=== PATIENT | female | born 1960 | race Caucasian/White ===

== ENCOUNTER 2019-10-03 13:48 | Emergency (ER) | payer OTHER, SELFPAY ==
[2019-10-03 13:49] VITALS: BP 152/81; PULSE 71; RESP 16; TEMP 36.2; O2SAT 97; BMI 31.7
--- NOTE | 2019-10-03 13:50 | ED.RN ---
PT NOW REPORTS CHEST PAIN, RESPIRATORY AWARE.
[2019-10-03 14:09] VITALS: BP 142/72; PULSE 68; RESP 16; O2SAT 98
--- NOTE | 2019-10-03 14:32 | EKG12_ITS ---
Test Reason : CP Blood Pressure : / mmHG Vent. Rate : 067 BPM Atrial Rate : 067 BPM P-R Int : 124 ms QRS Dur : 080 ms QT Int : 416 ms P-R-T Axes : 012 058 046 degrees QTc Int : 439 ms Normal sinus rhythm Normal ECG Confirmed by JOSR LUDWIG, UMA ([id number]), marketing editor STEPHANIE FOX ([id number]) on 10/07/2019 9:47:13 AM Referred By: Confirmed By:KATHRYN OVALLES MD
--- NOTE | 2019-10-03 14:32 | RAD_ITS ---
STUDY: X-RAY CHEST REASON FOR EXAM: Female, 59 years old. CHEST PAIN AND SHORTNESS OF BREATH TECHNIQUE: PA and lateral views of the chest. COMPARISON: None. FINDINGS: EKG electrodes are seen. Scattered calcified granulomas. There is no demonstrated pleural abnormality. Normal size heart. Calcified bilateral hilar lymph nodes. Normal visualized pulmonary arteries. Normal visualized aortic arch and descending thoracic aorta. There are mild degenerative changes of the visualized thoracic spine. Prior fusion in the lower cervical spine. There is no demonstrated abnormality of the visualized soft tissue structures of the upper abdomen. RAD/Chest PA and Lateral IMPRESSION: No acute abnormality is seen. Electronically Signed: Casimiro Ellington, at 15:05 EST , Service support ,
--- NOTE | 2019-10-03 14:33 | ED.DCSUM_ITS ---
History of Present Illness Chief Complaint: Chest Pain Informant: Patient Onset: Yesterday Activity at onset: Unknown Timing: Continuous Quality: Aching Location: Left Chest Current Severity: Moderate Maximum Severity: Moderate Worsened By: Movement of Arm, Movement of Torso, Breathing Relieved By: Rest, Remaining Still Associated Symptoms: Nausea, Dyspnea. Negative for: Vomiting, Diaphoresis, Cough, Fever, Lightheadedness, Palpitations Narrative: Spontaneous onset of chest discomfort in her left chest with radiation into the left shoulder area but not down her arm, it is pleuritic, she has no known history of heart or lung disease but states it is worse when she takes a deep breath and she has been feeling short of breath here and they are mostly yesterday. When we discussed her dyspnea more, she thinks it is because it hurts to breathe. She has had no wheezing that she knows of. No palpitations or lightheadedness. No recent leg pain or swelling, long travel, hospitalization, or surgery. No history of DVT or PE. 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 She had no acute injury or onset of symptoms then. - Past Medical History (1) Depression Status: Chronic (2) Hypothyroid Status: Chronic Past Medical History - Allergies and Home Meds Allergies/Adverse Reactions: Allergies No Known Allergies Allergy (Verified 10/03/19 13:49) Primary Care Physician: [facility],Out of [NON-STAFF] - Lives: Spouse/ Significant Other Smoking Status: Current every day smoker - Currently vaping, denies using THC products. States she is trying to quit. Drugs: None Review of Systems General: Denies: Chills, Fever, Sweats Eyes: Denies: Visual changes - bilaterally, Diplopia ENT: Denies: Bilateral ear pain, Rhinorrhea, Sore throat Cardiovascular: Reports: Chest pain. Denies: Palpitations, Heart racing Respiratory: Reports: Dyspnea. Denies: Cough, Dyspnea on exertion Gastrointestinal: Denies: Abdominal pain, Nausea, Vomiting, Diarrhea, Melena, Hematochezia Genitourinary: Denies: Dysuria, Hematuria, Frequency Musculoskeletal: Reports: Extremity Pain - left shoulder. Denies: Back pain, Swelling Skin: Denies: Rash, Wounds Neurological: Denies: Headache, Weakness, Numbness Physical Exam Vital Signs/Narrative: Vital Signs Temp Pulse Resp BP Pulse Ox 10/03/19 14:09 68 16 142/72 H 98 10/03/19 13:49 97.2 F L 71 16 152/81 H 97 Inital Vital Signs reviewed: Yes General: Well nourished, Well developed, No Acute Distress Head: Normocephalic, Atraumatic Eyes: Perrl, EOMI ENT: Moist mucous membranes, No rhinorrhea Neck: Supple, Nontender Cardiovascular: Regular rate, Regular rhythm, No murmurs Respiratory: No distress, CTA bilaterally, Chest tenderness - left mid-ant chest, reproducting pt's sx. no crepitance, no sign of trauma. Abdomen: Soft, Nontender, Nondistended, Normal bowel sounds Back: Nontender, Normal Inspection Extremities: No edema, Tenderness - mild subclavicular right shoulder; no ACJ tend, subacromial tend Skin: Normal color, No rash Neurological: Alert, Oriented x3, Cranial nerves II-XII grossly intact, Normal Strength, Normal Sensation, Normal Gait Psychological: Normal affect, Normal Mood Diagnostic/Tx/Re-eval Impressions Chest X-Ray 10/03/19 14:32 IMPRESSION: No acute abnormality is seen. Electronically Signed: Casimiro Chandana, at 15:05 EST , Service support , 10/03/19 14:32 Chest PA and Lateral [RAD] Stat Laboratory Results 10/03/19 10/03/19 10/03/19 14:00 14:00 14:00 WBC 8.6 RBC 4.99 Hgb 14.0 Hct 43.0 MCV 86.2 MCH 28.1 MCHC 32.6 RDW Std Deviation 41.4 RDW Coeff of Ela 13.3 Plt Count 303 MPV 8.9 Immature Gran % (Auto) 0.200 Neut % (Auto) 64.4 Lymph % (Auto) 26.0 [place] % (Auto) 5.8 Eos % (Auto) 1.7 Baso % (Auto) 1.9 H Absolute Neuts (auto) 5.5 Absolute Lymphs (auto) 2.23 Nucleated RBC % 0 D-Dimer Quant (PE/DVT) 0.54 H* Sodium 140 Potassium 4.0 Chloride 104 Carbon Dioxide 31.0 Anion Gap 5 BUN 11 Creatinine 0.95 Estim Creat Clear Calc 53.70 Est GFR (MDRD) Af Amer 77 Est GFR (MDRD) Non-Af 63 BUN/Creatinine Ratio 11.5 Glucose 87 Calcium 9.2 Troponin I < 0.015 - Rhythm Strip Rhythm Strip: Sinus Rhythm Rate: 85 Ectopy: None - EKG Initial EKG Interpretation: Sinus Rhythm, No Acute Injury Pattern - normal EKG. no [id number]. - Medical Decision Making Patient is a little better after Toradol but still has pleuritic discomfort. Her work-up is normal/negative with the exception of a slightly elevated d- dimer. However, when correcting for age, it is well within normal limits. She is reassured, likely muscular strain, given instructions for supportive care and follow-up as needed and reasons to return. She is comfortable with that plan and does not require prescription analgesics. ED Disposition - Plan for ED Patient: Disposition: Home or Assisted Living Diagnosis: Muscle strain of anterior chest wall Instructions: Chest Wall Strain Referrals: [facility],Out of [NON-STAFF] - 10-14 Days if not better
[2019-10-03 14:38] LABS: Absolute Lymphocyte Count 2.23 X10^3/uL (0.83-4.51); Absolute Neutrophil Count 5.5 X10^3/uL (2.0-7.7); Basophil# 0.16 X10^3/uL; Basophil% 1.9 % (0-1); Eosinophil# 0.15 X10^3/uL; Eosinophils% 1.7 % (0-5); Lymphocyte # 2.23 X10^3/ul (4.0); Mean Corp Hgb Conc 32.6 g/dL (32-36); Mean Corpuscular Hgb 28.1 pg (27.0-32.0); Mean Corpuscular Volume 86.2 fL (81-99); Mean Platelet Vol. 8.9 fl (6.2-12.0); Monocyte% 5.8 % (0-10); NRBC Flagged by Analyzer 0 % (0-5); Neutrophil # 5.52 X10^3/uL (2.7-7.7); Neutrophil % 64.4 % (47-70); Platelet Count 303 K/mm3 (150-450); RBC Distribution Width CV 13.3 % (11.6-14.6); RBC Distribution Width SD 41.4 fl (35.1-43.9); Red Blood Count 4.99 M/mm3 (4.2-5.4); White Blood Count 8.6 K/mm3 (4.4-11.0)
[2019-10-03 14:51] LABS: Anion Gap 5 (5-15); BUN 11 mg/dL (7-18); BUN/Creat Ratio 11.5 RATIO (10-20); Calcium,Total 9.2 mg/dL (8.5-10.1); Chloride 104 mmol/L (98-107); Creatinine, Serum 0.95 mg/dL (0.55-1.02); EST Glomerular Filtration Rate 63 mL/min (>60); Est Glom Filt Rate - Afr Amer 77 mL/min (>60); Glucose 87 mg/dL (74-106); Sodium Level 140 mmol/L (136-145)
[2019-10-03] MEDS: Ketorolac 15 MG/ML Vial IV (14:56)
[2019-10-03 15:01] VITALS: BP 112/48; PULSE 67; RESP 18; O2SAT 96
[2019-10-03 15:01] LABS: D-Dimer Quantitative (DVT/PE) 0.54 FEU/ug/m (0.27-0.49)
[2019-10-03 16:11] VITALS: BP 134/76; PULSE 81; RESP 16; O2SAT 97
== END 2019-10-03 16:12 | disposition home or self-care (01) ==
PROVIDERS: Emergency Provider Emergency Medicine
DX: S29.011A Strain of muscle and tendon of front wall of thorax, initial encounter (principal); S21.102A Unspecified open wound of left front wall of thorax without penetration into thoracic cavity, initial encounter; X58.XXXA Exposure to other specified factors, initial encounter; Y93.89 Activity, other specified; E03.9 Hypothyroidism, unspecified; F32.9 Major depressive disorder, single episode, unspecified; F17.290 Nicotine dependence, other tobacco product, uncomplicated
CPT/HCPCS: 71046; 80048; 84484; 85025; 85379; 93005; 96374; 99285; A4216

== ENCOUNTER 2021-05-26 20:16 | Inpatient (IN) | payer OTHER, SELFPAY ==
[2021-05-26 20:17] VITALS: BP 98/55; PULSE 74; RESP 18; TEMP 37.3; O2SAT 92; BMI 31.4
--- NOTE | 2021-05-26 21:24 | RAD_ITS ---
HISTORY: Shortness of breath EXAMINATION/TECHNIQUE: XR Chest 1 View AP view COMPARISON: Two-view chest x-ray from 10/03/19 FINDINGS: LINES/DEVICES: None. LUNGS: No overt pulmonary edema. Multifocal patchy bilateral pulmonary airspace opacities. No sizable pleural effusion. No pneumothorax detected. MEDIASTINUM AND CARDIOVASCULAR STRUCTURES: Heart size within normal limits for imaging technique. Atherosclerotic calcifications along the aorta. BONES AND SOFT TISSUES: Skeletal degenerative changes. Cervical spinal fusion hardware and adjacent small metallic clips noted. RAD/Chest 1 View (Portable) IMPRESSION: Patchy bilateral pulmonary airspace disease/infiltrate. Correlate for COVID status. at 2216 Reported and signed by: Arian Gonzalez MD Electronically Signed: Arian Gonzalez MD at 22:15 EDT Tel , Service support ,
[2021-05-26 21:43] VITALS: BP 98/55; PULSE 74; RESP 18; TEMP 37.3; O2SAT 92
--- NOTE | 2021-05-26 21:50 | EKG12_ITS ---
Test Reason : WEAKNESS Blood Pressure : / mmHG Vent. Rate : 068 BPM Atrial Rate : 068 BPM P-R Int : 116 ms QRS Dur : 090 ms QT Int : 404 ms P-R-T Axes : 026 098 041 degrees QTc Int : 429 ms Normal sinus rhythm Normal ECG Confirmed by MARINO LUDWIG, MORGAN ([id number]), medical editor JOSEPH QUINN ([id number]) on 05/28/2021 8:55:57 AM Referred By: ERIN Confirmed By:MORGAN PICHARDO MD
[2021-05-26 21:58] LABS: Absolute Lymphocyte Count 0.93 X10^3/uL (0.83-4.51); Absolute Neutrophil Count 2.5 X10^3/uL (2.0-7.7); Basophil# 0.02 X10^3/uL; Basophil% 0.5 % (0-1); Hemoglobin 13.4 g/dL (12.0-15.0); Lymphocyte # 0.93 X10^3/ul (0.83-4.51); Lymphocyte % 25.1 % (19-41); Mean Corp Hgb Conc 32.7 g/dL (32-36); Mean Corpuscular Hgb 27.2 pg (27.0-32.0); Mean Corpuscular Volume 83.2 fL (81-99); Mean Platelet Vol. 9.4 fl (6.2-12.0); Monocyte# 0.26 X10^3/uL; NRBC Flagged by Analyzer 0 % (0-5); Neutrophil # 2.46 X10^3/uL (2.7-7.7); Neutrophil % 66.6 % (47-70); Platelet Count 174 K/mm3 (150-450); RBC Distribution Width CV 12.9 % (11.6-14.6); RBC Distribution Width SD 39.1 fl (35.1-43.9); Red Blood Count 4.93 M/mm3 (4.2-5.4); White Blood Count 3.7 K/mm3 (4.4-11.0)
--- NOTE | 2021-05-26 21:58 | EX.ED.DYSGE1 ---
HPI History of Present Illness Chief Complaint: General Illness Narrative Narrative: 60-year-old female presenting on day 5 of COVID-19. She states she tested positive on Thursday. Patient states she had fevers of 101 to 102 ?F. This does respond to Tylenol however she states she is so nauseous she is having trouble tolerating p.o. Tylenol. She has chills and body aches. She has cough and shortness of breath. Patient states that she is generally weak. She has not been able to take her meds at home other than Tylenol as well. PFSH PFSH Home Medications bupropion HCl (smoking deter) 150 mg PO DAILY 10/03/19 [History Last Taken Unknown] levothyroxine 125 mcg PO DAILY 10/03/19 [History Last Taken Unknown] sertraline 75 mg PO DAILY 10/03/19 [History Last Taken Unknown] Allergy/AdvReac Type Severity Reaction Status Date / Time No Known Allergies Allergy Verified 10/03/19 13:49 Social History Smoking Status: Current every day smoker tobacco type: cigarettes ROS ROS ED Constitutional Constitutional ED: Reports chills and fever(s); Denies sweats Eyes Eyes: Denies blurry vision or diplopia ENT ENT ED: Denies rhinorrhea or sore throat Cardiovascular Cardiovascular: Reports chest pain; Denies palpitations or racing heartbeat Respiratory/Chest Respiratory/Chest: Reports cough, dyspnea and dyspnea on exertion Gastrointestinal Gastrointestinal: Reports nausea and vomiting; Denies abdominal pain, constipation or diarrhea Genitourinary Genitourinary ED: Denies dysuria or hematuria Musculoskeletal Musculoskeletal: Reports myalgias; Denies arthralgias, back pain or neck pain Integumentary Denies Abrasions or rash Neurologic Neurologic: Reports headache(s); Denies paresthesias or weakness EXAM Physical Exam Const Vital Signs: 05/26/21 20:17 05/26/21 21:43 05/26/21 21:45 Temperature 99.1 F 99.1 F Temperature Source Temporal Temporal Pulse Rate 74 74 Respiratory Rate 18 18 Respiratory Effort Normal Non-Labored Respiratory Pattern Normal Blood Pressure 98/55 L 98/55 L Blood Pressure Mean 69 69 Pulse Ox 92 92 Oxygen Delivery Method Room Air Room Air 05/26/21 22:16 05/27/21 00:00 Temperature 99.3 F H 100.5 F H Temperature Source Oral Temporal Pulse Rate 68 86 Respiratory Rate 22 H 20 H Respiratory Effort Respiratory Pattern Blood Pressure 134/65 H 117/63 Blood Pressure Mean 88 81 Pulse Ox 98 93 Oxygen Delivery Method Room Air Positive well nourished General Appearance ED: Negative for pallor HEENT Reports dry mucous membranes Negative for trauma Mouth ED: Yes dry mucous membranes Mouth: dry mucous membranes Eyes PERRL and EOMs intact bilaterally General Eye ED: Negative for pale conjunctiva or scleral icterus Neck no lymphadenopathy and supple Resp normal respiratory effort Auscultation: rales diffuse Cardio regular rate and regular rhythm GI normal to inspection, nondistended, normoactive bowel sounds Neuro oriented x3, CN's II-XII intact bilaterally and no sensory deficits noted Sensorium / Orientation: alert Motor Exam: strength 5/5 throughout Psych mental status grossly normal Skin no rashes or lesions noted General Skin Exam: Negative for jaundice or pallor MDM MDM MDM Narrative Medical decision making narrative: Patient presenting with known COVID-19 for nausea and generalized fatigue. Her blood pressure was a little low when she arrived and she was given IV fluids. Her lab work today shows that she is leukopenic but not lymphopenic. Her renal function and electrolytes are normal. She has a slight bump in her LFTs. Lactic acid and procalcitonin are normal. EKG on my interpretation shows a normal sinus rhythm at 68 bpm without ischemic changes. Chest x-ray on my interpretation shows patchy bilateral pulmonary infiltrates and the radiologist does agree. This would be consistent with COVID-19. Patient's D-dimer was elevated at 1.10 and she had a CTA of the chest which shows multilobar bilateral pulmonary infiltrates consistent with COVID-19 and since the patient has this is a known diagnosis is likely the source. Patient's nausea has improved and she was able to sip some water. She will be ambulated on pulse ox to see what her oxygen needs are. Patient did have a low-grade fever later in her stay at 100.5 and she was ordered a gram of p.o. Tylenol. She is having difficulty taking the Tylenol due to her nausea and was able to break it into pieces and swallow it and some pieces. When she got up to the bedside commode she dropped to 84% on room air and she was placed on 2 L while on the commode and maintain sats of about 92%. I had a discussion with the patient that she will need to take steroids and I do not believe she will be able to take these if she is barely being able to take Tylenol or her home medications due to nausea and difficulty swallowing. I think the patient would benefit from inpatient treatment given that she is day 5 she could still do remdesivir and steroids and when her nausea gets better possibly be discharged home on her medications. I will discuss this with the hospitalist for admission. Impression: 1. History of COVID-19 pneumonitis 2. Hypoxia 3. Nausea 4. Generalized weakness Lab Data Attestation: I reviewed the patient's lab results. Labs: Laboratory Results - last 24 hr 05/26/21 05/26/21 05/26/21 Unknown Unknown Unknown WBC 3.7 L RBC 4.93 Hgb 13.4 Hct 41.0 MCV 83.2 MCH 27.2 MCHC 32.7 RDW Std Deviation 39.1 RDW Coeff of Ela 12.9 Plt Count 174 MPV 9.4 Immature Gran % (Auto) 0.800 Neut % (Auto) 66.6 Lymph % (Auto) 25.1 [place] % (Auto) 7.0 Eos % (Auto) 0.0 Baso % (Auto) 0.5 Absolute Neuts (auto) 2.5 Absolute Lymphs (auto) 0.93 Nucleated RBC % 0 D-Dimer Quant (PE/DVT) 1.10 H* Sodium 133 L Potassium 3.7 Chloride 100 Carbon Dioxide 26.0 Anion Gap 7 BUN 13 Creatinine 0.76 Estim Creat Clear Calc 65.43 Est GFR (MDRD) Af Amer 99 Est GFR (MDRD) Non-Af 82 BUN/Creatinine Ratio 17.1 Glucose 91 Lactic Acid Calcium 8.2 L Total Bilirubin 0.50 AST 75 H ALT 136 H Alkaline Phosphatase 149 H Total Protein 7.3 Albumin 3.3 Globulin 4.0 Albumin/Globulin Ratio 0.8 L Procalcitonin 05/26/21 05/26/21 Unknown Unknown WBC RBC Hgb Hct MCV MCH MCHC RDW Std Deviation RDW Coeff of Ela Plt Count MPV Immature Gran % (Auto) Neut % (Auto) Lymph % (Auto) [place] % (Auto) Eos % (Auto) Baso % (Auto) Absolute Neuts (auto) Absolute Lymphs (auto) Nucleated RBC % D-Dimer Quant (PE/DVT) Sodium Potassium Chloride Carbon Dioxide Anion Gap BUN Creatinine Estim Creat Clear Calc Est GFR (MDRD) Af Amer Est GFR (MDRD) Non-Af BUN/Creatinine Ratio Glucose Lactic Acid 0.9 Calcium Total Bilirubin AST ALT Alkaline Phosphatase Total Protein Albumin Globulin Albumin/Globulin Ratio Procalcitonin 0.13 H Radiography Diagnostic Testing: Radiology Impression Chest X-Ray 05/26/21 21:24 IMPRESSION: Patchy bilateral pulmonary airspace disease/infiltrate. Correlate for COVID status. at 2216 Reported and signed by: Arian Gonzalez MD Electronically Signed: Arian Gonzalez MD at 22:15 EDT Tel , Service support , Chest CTA 05/26/21 23:15 IMPRESSION: 1. Patchy multilobar pulmonary infiltrates, with peripheral groundglass opacities. Findings are consistent with pneumonia, with typical features of COVID 19 infection. 2. No evidence of pulmonary embolism. Individualized dose optimization techniques were used for this CT. at 0009 Reported and signed by: Liborio Goodman MD Electronically Signed: Liborio Goodman MD at 0:08 EDT Tel , Service support , Discharge Plan Triage Chief Complaint: General Illness ED Provider: Enrico Bains Dx/Rx/DC Orders Prescriptions: No Action levothyroxine 125 MCG tablet 125 mcg PO DAILY RF: 0 sertraline 50 MG tablet 75 mg PO DAILY RF: 0 bupropion HCl (smoking deter) 150 MG tablet extended release 12 hr 150 mg PO DAILY RF: 0 Primary Care Provider: [facility],MD
[2021-05-26] MEDS: 0.9% Normal Saline 1,000 ML 999 ML IV (22:15)
[2021-05-26] MEDS: Ondansetron 4 MG/2 ML Vial IV (22:15)
[2021-05-26 22:16] VITALS: BP 134/65; PULSE 68; RESP 22; TEMP 37.4; O2SAT 98
[2021-05-26 23:00] LABS: ALB/GLOB Ratio 0.8 RATIO (0.9-2.4); AST(SGOT) 75 U/L (15-37); Alanine Aminotransfer ALT/SGPT 136 U/L (13-56); Albumin, Serum 3.3 g/dL (3.2-5.0); Alkaline Phosphatase 149 U/L (45-117); Anion Gap 7 (5-15); BUN 13 mg/dL (7-18); BUN/Creat Ratio 17.1 RATIO (10-20); Calcium,Total 8.2 mg/dL (8.5-10.1); Chloride 100 mmol/L (98-107); Creatinine, Serum 0.76 mg/dL (0.55-1.02); EST Glomerular Filtration Rate 82 mL/min (>60); Est Glom Filt Rate - Afr Amer 99 mL/min (>60); Estimated Creatinine Clearance 65.43 ml/min; Glucose 91 mg/dL (74-106); Lactic Acid 0.9 mmol/L (0.4-1.9); Potassium 3.7 mmol/L (3.5-5.1); Protein, Total 7.3 g/dL (6.4-8.2); Sodium Level 133 mmol/L (136-145)
[2021-05-26 23:02] LABS: Procalcitonin 0.13 ng/mL (0.00-0.09)
--- NOTE | 2021-05-26 23:15 | CT_ITS ---
EXAM: CT ANGIOGRAPHY CHEST WITHOUT AND WITH INTRAVENOUS CONTRAST : 1960 CLINICAL INDICATION: dyspnea TECHNIQUE: Helically acquired angiography images were obtained of the chest without and with intravenous contrast. This CT exam was performed using one or more of the following dose reduction techniques: automated exposure control, adjustment of the mA and/or kV according to patient size, and/or use of iterative reconstruction technique. This report was created using [employer] report generation technology. MIP reconstructed images were created and reviewed. CONTRAST: IV 100mL [id number] COMPARISON: None. FINDINGS: PULMONARY ARTERIES: Unremarkable. Normal in caliber. No evidence of pulmonary embolism. AORTA: Unremarkable. Normal in caliber. No evidence of dissection. GREAT VESSELS OF AORTIC ARCH: Unremarkable. Normal in caliber. No evidence of dissection. LUNGS AND PLEURAL SPACES: Patchy multilobar pulmonary infiltrates, with peripheral groundglass opacities. No mass. No pleural effusion or thickening. No pneumothorax. HEART: Unremarkable. Heart size is normal. No pericardial effusion. No signs of right heart strain, ratio of right ventricle to left ventricle measures less than 1. MEDIASTINUM: Reactive mediastinal lymph nodes. Esophagus is unremarkable. No hiatal hernia. THYROID: Unremarkable. No thyroid lesions. BONES/JOINTS: Unremarkable. No suspicious lytic or blastic abnormality. CT/CTA Chest W/WO Contrast IMPRESSION: 1. Patchy multilobar pulmonary infiltrates, with peripheral groundglass opacities. Findings are consistent with pneumonia, with typical features of COVID 19 infection. 2. No evidence of pulmonary embolism. Individualized dose optimization techniques were used for this CT. at 0009 Reported and signed by: Liborio Goodman MD Electronically Signed: Liborio Goodman MD at 0:08 EDT Tel , Service support ,
[2021-05-27] VITALS (10 sets, daily range): BP systolic 103–121; BP diastolic 53–83; PULSE 60–86; RESP 18–26; TEMP 36.6–38.1; O2SAT 91–95; BMI 30.9
[2021-05-27] MEDS: Acetaminophen 500 MG Tablet 1000 MG PO (01:00)
--- NOTE | 2021-05-27 01:02 | SUR.HOLD ---
INITIAL PULSE OX WAS 93%. PT DROPPED TP 84% STANDING UP TOP THE BEDSIDE COMMODE. PT PLACED ON 2L NC WHILE ON BSC AND O2 CAME UP TO 93%. PT REMAINED AT 93% WHILE GETTING BACK INTO BED. PT STATES SHE JUST HAS DIFFICULTY TAKING DEEP BREATHS. RESULTS RELAYED TO
[2021-05-27] MEDS: dexAMETHasone 10 MG/ML Vial 6 MG IV ×2 (01:33→09:57)
--- NOTE | 2021-05-27 01:49 | PCM.HP.STD ---
HPI - General General Date of Admission: 05/27/21 HPI Narrative MARIANO BAIN, is a 61 F with a significant history of hypothyroidism; and histoplasmosis; rheumatoid arthritis on Plaquenil; anxiety disorder; and depression who presents to the emergency department with a 5-day history of progressively worsening malaise. Associated with her symptoms is weakness; vomiting; shortness of breath; fever and chills. She reported home temperature of 102 Fahrenheit. Further she has body aches; nausea; vomiting and diarrhea. [facility] Medical History (Updated 05/27/21 @ 02:[address] Ryan Contreras MD) Cervical vertebral fusion Depression Hypothyroid Home Medications bupropion HCl (smoking deter) 150 mg PO DAILY 10/03/19 [History Last Taken Unknown] levothyroxine 125 mcg PO DAILY 10/03/19 [History Last Taken Unknown] sertraline 75 mg PO DAILY 10/03/19 [History Last Taken Unknown] Allergy/AdvReac Type Severity Reaction Status Date / Time No Known Allergies Allergy Verified 10/03/19 13:49 Family History Other Cancer Diabetes Heart disease Surgical History History of lung biopsy Previous section Social History Smoking Status: Former smoker ROS ROS Narrative Constitutional: Reports anorexia. Denies change in weight Eyes: Denies blurry vision, change in eye color, change in vision, discharge from eye(s), double vision, erythema, eye pain, loss of vision or other HEENT: Denies abnormal hearing, dysphagia, ear pain, epistaxis, headache(s), hearing loss, nasal congestion, nasal discharge, post nasal drip, sinus pressure, sore throat or other Cardiovascular: Denies chest pain. Denies dyspnea on exertion, orthopnea and paroxysmal nocturnal dyspnea Respiratory/Chest: Reports productive cough. Reports shortness of breath. Gastrointestinal: Reports nausea, vomiting and diarrhea. Denies abdominal pain, coffee ground emesis, constipation, dyspepsia, hematemesis, hematochezia, loose stools, melena, or other Genitourinary: Denies burning urination, difficulty urinating, dysuria, hematuria, nocturia, urinary frequency, urinary hesitancy, urinary incontinence, urinary urgency or other Musculoskeletal: Reports myalgia. Denies arthralgias, back pain, joint pain, joint stiffness, joint swelling, neck pain or other Neurologic: Denies abnormal gait, abnormal speech, confusion, disequilibrium, dizziness, focal weakness, headache(s), numbness, paresthesias, seizure-like activity, seizures, syncope, tingling, tremor(s) or other Psychiatric: Denies anxiety, depression, homicidal ideation, suicidal ideation or other Endocrinology: Denies change in body appearance, cold intolerance, excessive sweating, heat intolerance, polydipsia, polyuria or other Hematologic/Lymphatic: Denies anemia, easy bleeding, easy bruising, lymphadenopathy or other Integumentary: Denies rashes Allergic/Immunologic: Denies rhinitis, hives, eczema, asthma or other Vital Signs Vital Signs Vital Signs: 05/26/21 20:17 05/26/21 21:43 05/26/21 21:45 Temperature 99.1 F 99.1 F Temperature Source Temporal Temporal Pulse Rate 74 74 Respiratory Rate 18 18 Respiratory Effort Normal Non-Labored Respiratory Pattern Normal Blood Pressure 98/55 L 98/55 L Blood Pressure Mean 69 69 Pulse Ox 92 92 Oxygen Delivery Method Room Air Room Air Oxygen Flow Rate (L/min) 05/26/21 22:16 05/27/21 00:00 05/27/21 01:00 Temperature 99.3 F H 100.5 F H 99.9 F H Temperature Source Oral Temporal Temporal Pulse Rate 68 86 79 Respiratory Rate 22 H 20 H 24 H Respiratory Effort Respiratory Pattern Blood Pressure 134/65 H 117/63 104/56 L Blood Pressure Mean 88 81 72 Pulse Ox 98 93 91 Oxygen Delivery Method Room Air Nasal Cannula Oxygen Flow Rate (L/min) 2 Weight Weight: 83.007 kg Body Mass Index (BMI) 31.4 Physical Exam Narrative Physical exam: General: Well-nourished, well-developed. Head: Normocephalic, atraumatic, no tenderness Eyes: PERRLA, EOMI ENT, no trauma, moist mucous membranes, no rhinorrhea Neck: Nontender, full range of motion, no spinal tenderness, deformities, step-off CVS: Tachycardia. S1-S2 present. No murmur, gallop or rub. Respiratory : Tachypnea. Bilateral rales. Chest wall nontender, no wheezing Abdomen: Soft, nontender, nondistended, normal bowel sounds, no masses : Deferred Back: Nontender, no CVA tenderness, no midline spinal tenderness, deformities, step-offs Extremities: Nontender full range of motion, no trauma Skin: Normal color, no trauma, abrasions Neuro: Alert, oriented, cranial nerves II through XII grossly intact. Psychiatry: Normal mood. Normal affect. Not depressed. Not anxious. Results Lab / Micro Data Result Diagrams: 05/26/21 Unknown 05/26/21 Unknown Labs: Laboratory Results - last 24 hr 05/26/21 : WBC 3.7 L, RBC 4.93, Hgb 13.4, Hct 41.0, MCV 83.2, MCH 27.2, MCHC 32.7, RDW Std Deviation 39.1, RDW Coeff of Ela 12.9, Plt Count 174, MPV 9.4, Immature Gran % (Auto) 0.800, Neut % (Auto) 66.6, Lymph % (Auto) 25.1, [place] % (Auto) 7.0, Eos % (Auto) 0.0, Baso % (Auto) 0.5, Absolute Neuts (auto) 2.5, Absolute Lymphs (auto) 0.93, Nucleated RBC % 0 05/26/21 : D-Dimer Quant (PE/DVT) 1.10 H* 05/26/21 : Sodium 133 L, Potassium 3.7, Chloride 100, Carbon Dioxide 26.0, Anion Gap 7, BUN 13, Creatinine 0.76, Estim Creat Clear Calc 65.43, Est GFR (MDRD) Af Amer 99, Est GFR (MDRD) Non-Af 82, BUN/Creatinine Ratio 17.1, Glucose 91, Calcium 8.2 L, Total Bilirubin 0.50, AST 75 H, ALT 136 H, Alkaline Phosphatase 149 H, Total Protein 7.3, Albumin 3.3, Globulin 4.0, Albumin/Globulin Ratio 0.8 L 05/26/21 : Lactic Acid 0.9 05/26/21 : Procalcitonin 0.13 H Radiology Impression Chest X-Ray 05/26/21 21:24 IMPRESSION: Patchy bilateral pulmonary airspace disease/infiltrate. Correlate for COVID status. at 2216 Reported and signed by: Arian Gonzalez MD Electronically Signed: Arian Gonzalez MD at 22:15 EDT Tel , Service support , Chest CTA 05/26/21 23:15 IMPRESSION: 1. Patchy multilobar pulmonary infiltrates, with peripheral groundglass opacities. Findings are consistent with pneumonia, with typical features of COVID 19 infection. 2. No evidence of pulmonary embolism. Individualized dose optimization techniques were used for this CT. at 0009 Reported and signed by: Liborio Goodman MD Electronically Signed: Liborio Goodman MD at 0:08 EDT Tel , Service support , Assessment & Plan Assessment/Plan (1) Respiratory failure: QUALIFIERS: Chronicity: acute Respiratory failure complication: hypoxia Qualified Code(s): J96.01 - Acute respiratory failure with hypoxia (2) Acute respiratory distress syndrome (ARDS) due to severe acute respiratory syndrome coronavirus 2 (SARS-CoV-2): PLAN: Acute hypoxemic respiratory failure secondary to SARS- COV 2 Reportedly at emergency department when patient got up to the bedside commode her oxygen saturation dropped to 84%. Tachypnea with respiratory rate as high as 24. Patient required supplemental oxygen at emergency department. Oxygen supplementation continued. Positive coronavirus test outpatient. Impression of chest x-ray by radiologist: Patchy bilateral pulmonary airspace disease/infiltrate. Actual chest x-ray image was independently interpreted. I agree with radiologist interpretation. Dimer was elevated at 1.1. Radiologist impression of follow-up chest CTA showed : 1. Patchy multilobar pulmonary infiltrates, with peripheral groundglass opacities. Findings are consistent with pneumonia, with typical features of COVID 19 infection. 2. No evidence of pulmonary embolism. Check procalcitonin. Received Decadron IV at emergency department and continued. Estimated creatinine clearance is 65.43. AST and ALT as well as alkaline phosphatase is elevated but not more than 10 times of normal. Will initiate remdesivir. Will trend CMP and CBC. Tylenol for fever Scarlet Byers ordered Hypothyroidism Synthroid continued Depression and anxiety Bupropion and levothyroxine continued. Charges/Coding Visit Charges Inpatient E&M: 67475 Init Hosp L3
[2021-05-27] MEDS: 0.9% Saline Lock 10 ML Syringe IV ×3 (03:44→21:38)
[2021-05-27 09:13] LABS: Procalcitonin 0.11 ng/mL (0.00-0.09)
[2021-05-27] MEDS: Ensure Clear 120 ML Liquid PO (09:56)
[2021-05-27] MEDS: Enoxaparin 30 MG/0.3 ML Syringe SC ×2 (09:56→21:41)
[2021-05-27] MEDS: Levothyroxine 125 MCG Tablet PO (09:57)
[2021-05-27] MEDS: Sertraline 50 MG Tablet 75 MG PO (09:57)
[2021-05-27] MEDS: buPROPion (SR) 150 MG Tablet.SA PO (09:57)
[2021-05-27 11:37] LABS: Absolute Lymphocyte Count 0.46 X10^3/uL (0.83-4.51); Absolute Neutrophil Count 2.1 X10^3/uL (2.0-7.7); Basophil# 0.01 X10^3/uL; Basophil% 0.4 % (0-1); Hemoglobin 12.5 g/dL (12.0-15.0); Lymphocyte # 0.46 X10^3/ul (0.83-4.51); Lymphocyte % 17.1 % (19-41); Mean Corp Hgb Conc 32.9 g/dL (32-36); Mean Platelet Vol. 9.6 fl (6.2-12.0); Monocyte# 0.11 X10^3/uL; Monocyte% 4.1 % (0-10); NRBC Flagged by Analyzer 0 % (0-5); POSITIVE DIFFERENTIAL YES; POSITIVE MORPHOLOGY YES; Platelet Count 175 K/mm3 (150-450); RBC Distribution Width CV 13.3 % (11.6-14.6); RBC Distribution Width SD 41.9 fl (35.1-43.9); Red Blood Count 4.47 M/mm3 (4.2-5.4); White Blood Count 2.7 K/mm3 (4.4-11.0)
[2021-05-27 11:49] LABS: ALB/GLOB Ratio 0.8 RATIO (0.9-2.4); AST(SGOT) 63 U/L (15-37); Alanine Aminotransfer ALT/SGPT 119 U/L (13-56); Albumin, Serum 2.9 g/dL (3.2-5.0); Alkaline Phosphatase 130 U/L (45-117); Anion Gap 5 (5-15); BUN 12 mg/dL (7-18); Calcium,Total 7.9 mg/dL (8.5-10.1); Chloride 106 mmol/L (98-107); Creatinine, Serum 0.75 mg/dL (0.55-1.02); EST Glomerular Filtration Rate 83 mL/min (>60); Est Glom Filt Rate - Afr Amer 101 mL/min (>60); Globulin 3.6 g/dL (2.2-4.2); Glucose 131 mg/dL (74-106); Potassium 3.8 mmol/L (3.5-5.1); Protein, Total 6.5 g/dL (6.4-8.2); Sodium Level 137 mmol/L (136-145)
[2021-05-27 11:52] LABS: Differential Indicated SCAN CRITERIA MET
[2021-05-27 12:26] LABS: Differential Comment SCANNED
--- NOTE | 2021-05-27 12:34 | PN.HOSP_ITS ---
Subjective Subjective Patient seen and examined. Complaint of weakness and lethargy. She also complained of a cough which was productive of dark brown sputum. She denied any fever or chills. Review of systems otherwise negative. She has remained hemodynamically stable. She is on 2 L of oxygen. Objective Data Objective Data Vital Signs: Vital Signs Temp Pulse Resp BP Pulse Ox 98.3 F 65 18 111/63 94 05/27/21 12:12 05/27/21 12:12 05/27/21 12:12 05/27/21 12:12 05/27/21 12:12 Oxygen Flow Rate (L/min) 2 Oxygen Delivery Method Nasal Cannula Weight: 179 lb 14.355 oz Body Mass Index (BMI) 30.9 Intake & Output: Intake and Output for Last 24 Hours 05/25/21 05/26/21 05/27/21 23:59 23:59 23:59 Intake Total 1250 / 1250 Balance 1250 / 1250 Lab / Micro Data Result Diagrams: 05/27/21 06:55 05/27/21 06:55 Labs: Laboratory Results - last 24 hr 05/26/21 : WBC 3.7 L, RBC 4.93, Hgb 13.4, Hct 41.0, MCV 83.2, MCH 27.2, MCHC 32.7, RDW Std Deviation 39.1, RDW Coeff of Ela 12.9, Plt Count 174, MPV 9.4, Immature Gran % (Auto) 0.800, Neut % (Auto) 66.6, Lymph % (Auto) 25.1, [place] % (Auto) 7.0, Eos % (Auto) 0.0, Baso % (Auto) 0.5, Absolute Neuts (auto) 2.5, Absolute Lymphs (auto) 0.93, Nucleated RBC % 0 05/26/21 : D-Dimer Quant (PE/DVT) 1.10 H* 05/26/21 : Sodium 133 L, Potassium 3.7, Chloride 100, Carbon Dioxide 26.0, Anion Gap 7, BUN 13, Creatinine 0.76, Estim Creat Clear Calc 65.43, Est GFR (MDRD) Af Amer 99, Est GFR (MDRD) Non-Af 82, BUN/Creatinine Ratio 17.1, Glucose 91, Calcium 8.2 L, Total Bilirubin 0.50, AST 75 H, ALT 136 H, Alkaline Phosphatase 149 H, Total Protein 7.3, Albumin 3.3, Globulin 4.0, Albumin/Globulin Ratio 0.8 L 05/26/21 : Lactic Acid 0.9 05/26/21 : Procalcitonin 0.13 H 05/27/21 06:55: Procalcitonin 0.11 H 05/27/21 06:55: WBC 2.7 L, RBC 4.47, Hgb 12.5, Hct 38.0, MCV 85.0, MCH 28.0, MCHC 32.9, RDW Std Deviation 41.9, RDW Coeff of Ela 13.3, Plt Count 175, MPV 9.6, Immature Gran % (Auto) 0.400, Neut % (Auto) 78.0 H, Lymph % (Auto) 17.1 L, [place] % (Auto) 4.1, Eos % (Auto) 0.0, Baso % (Auto) 0.4, Absolute Neuts (auto) 2.1, Absolute Lymphs (auto) 0.46 L, Nucleated RBC % 0, Differential Comment SCANNED, Diff Path Review January05/27/21 06:55: Sodium 137, Potassium 3.8, Chloride 106, Carbon Dioxide 26.0, An ion Gap 5, BUN 12, Creatinine 0.75, Estim Creat Clear Calc 66.30, Est GFR (MDRD) Af Amer 101, Est GFR (MDRD) Non-Af 83, BUN/Creatinine Ratio 16.0, Glucose 131 H, Calcium 7.9 L, Total Bilirubin 0.40, AST 63 H, ALT 119 H, Alkaline Phosphatase 130 H, Total Protein 6.5, Albumin 2.9 L, Globulin 3.6, Albumin/Globulin Ratio 0.8 L Radiography Diagnostic Testing: Radiology Impression Chest X-Ray 05/26/21 21:24 IMPRESSION: Patchy bilateral pulmonary airspace disease/infiltrate. Correlate for COVID status. at 6022 Reported and signed by: Arian Gonzalez MD Electronically Signed: Arian Gonzalez MD at 22:15 EDT Tel , Service support , Chest CTA 05/26/21 23:15 IMPRESSION: 1. Patchy multilobar pulmonary infiltrates, with peripheral groundglass opacities. Findings are consistent with pneumonia, with typical features of COVID 19 infection. 2. No evidence of pulmonary embolism. Individualized dose optimization techniques were used for this CT. at 0009 Reported and signed by: Liborio Goodman MD Electronically Signed: Liborio Goodman MD at 0:08 EDT Tel , Service support , Physical Exam Const alert, oriented x3 and no apparent distress Orientation / Consciousness: lethargic Exam Limitations: no limitations HEENT head/scalp atraumatic, moist oral mucous membranes and oropharynx normal Head and Scalp: normocephalic Eyes PERRL, EOMs intact bilaterally and conjunctivae normal Neck no lymphadenopathy Resp Resp Narrative: diminished breath sounds bibasally, no wheezes or crackles. on 2L of oxygen by nasal canula Cardio regular rate, regular rhythm, S1 normal heart sound, S2 normal heart sound and no murmurs GI normal to inspection, nondistended, normoactive bowel sounds, soft to palpation, non-tender and non-distended Extremity normal to inspection, full ROM and no clubbing, cyanosis or edema Peripheral Pulses: Yes pulses 2+ throughout Skin no rashes or lesions noted Neuro oriented x3, CN's II-XII intact bilaterally and moves all extremities Sensorium / Orientation: awake and alert Psych affect normal Assessment & Plan Assessment/Plan (1) Acute respiratory distress syndrome (ARDS) due to severe acute respiratory syndrome coronavirus 2 (SARS-CoV-2): (2) Respiratory failure: QUALIFIERS: Chronicity: acute Respiratory failure complication: hypoxia Qualified Code(s): J96.01 - Acute respiratory failure with hypoxia PLAN: #Acute hypoxic respiratory failure due to COVID 19 infection * patient currently on 2L of oxygen. Feels weak and lethargic. * on decadrone and remdesivir * breathing treatment wtih bronchodilators. * titrate oxygen to maintain sats >90% * CTA of the chest was negative for PE * #ELevated liver enzymes * liver enzymes mildly elevated. Will trend and monitor. If elevation worsens, consider discontinuing remdesivir. #Hypothyroidism: on synthroid #Hyperlipidemia: on ezetemibe #Rheumatoid arthritis: on plaquenil #Depression: on bupropion. DVT prophylaxis: lovenox 30mg bid. Charges/Coding Visit Charges Inpatient E&M: 14052 Subs Hosp L3
[2021-05-27] MEDS: Ondansetron 4 MG/2 ML Vial IV (12:38)
[2021-05-27] MEDS: Acetaminophen 325 MG Tablet 650 MG PO (17:56)
[2021-05-27] MEDS: MELATONIN 3 MG TABLET PO (21:38)
[2021-05-28] MEDS: Acetaminophen 325 MG Tablet 650 MG PO ×2 (00:48→09:27)
[2021-05-28] MEDS: Ondansetron 4 MG/2 ML Vial IV ×3 (00:49→21:36)
[2021-05-28] MEDS: 0.9% Saline Lock 10 ML Syringe IV ×3 (00:49→21:37)
[2021-05-28 04:00] VITALS: BP 117/64; PULSE 63; RESP 18; TEMP 36.5; O2SAT 93
[2021-05-28 07:28] LABS: Absolute Lymphocyte Count 0.94 X10^3/uL (0.83-4.51); Absolute Neutrophil Count 4.8 X10^3/uL (2.0-7.7); Basophil# 0.04 X10^3/uL; Basophil% 0.6 % (0-1); Hematocrit 37.6 % (37-47); Hemoglobin 12.4 g/dL (12.0-15.0); Lymphocyte # 0.94 X10^3/ul (0.83-4.51); Lymphocyte % 15.1 % (19-41); Mean Corpuscular Hgb 27.9 pg (27.0-32.0); Mean Corpuscular Volume 84.5 fL (81-99); Mean Platelet Vol. 9.4 fl (6.2-12.0); Monocyte# 0.43 X10^3/uL; Monocyte% 6.9 % (0-10); NRBC Flagged by Analyzer 0 % (0-5); Neutrophil # 4.81 X10^3/uL (2.7-7.7); Neutrophil % 77.1 % (47-70); Platelet Count 237 K/mm3 (150-450); RBC Distribution Width CV 13.3 % (11.6-14.6); RBC Distribution Width SD 41.3 fl (35.1-43.9); Red Blood Count 4.45 M/mm3 (4.2-5.4); White Blood Count 6.2 K/mm3 (4.4-11.0)
[2021-05-28 07:29] VITALS: O2SAT 93
[2021-05-28 08:02] LABS: Anion Gap 6 (5-15); BUN 14 mg/dL (7-18); BUN/Creat Ratio 17.2 RATIO (10-20); Calcium,Total 7.9 mg/dL (8.5-10.1); Chloride 104 mmol/L (98-107); Creatinine, Serum 0.81 mg/dL (0.55-1.02); EST Glomerular Filtration Rate 76 mL/min (>60); Est Glom Filt Rate - Afr Amer 91 mL/min (>60); Estimated Creatinine Clearance 61.39 ml/min; Glucose 95 mg/dL (74-106); Potassium 3.9 mmol/L (3.5-5.1); Sodium Level 136 mmol/L (136-145)
[2021-05-28 09:13] VITALS: BP 124/56; PULSE 85; RESP 18; TEMP 37.6; O2SAT 93
[2021-05-28] MEDS: Levothyroxine 125 MCG Tablet PO (09:26)
[2021-05-28] MEDS: buPROPion (SR) 150 MG Tablet.SA PO (09:26)
[2021-05-28] MEDS: Enoxaparin 30 MG/0.3 ML Syringe SC ×2 (09:26→21:36)
[2021-05-28] MEDS: Sertraline 50 MG Tablet 75 MG PO (09:26)
--- NOTE | 2021-05-28 10:15 | PN.HOSP_ITS ---
Subjective Subjective Patient seen and examined SHe feels more sick today, and says she was vomiting all night. She also complains of nausea, and worsening of shortness of breath. She feels more lethargic and review of systems is otherwise negative. Objective Data Objective Data Vital Signs: Vital Signs Temp Pulse Resp BP Pulse Ox 99.6 F H 85 18 124/56 H 93 05/28/21 09:13 05/28/21 09:13 05/28/21 09:13 05/28/21 09:13 05/28/21 09:13 Oxygen Flow Rate (L/min) 6 Oxygen Delivery Method Nasal Cannula Weight: 179 lb 14.355 oz Body Mass Index (BMI) 30.9 Intake & Output: Intake and Output for Last 24 Hours 05/26/21 05/27/21 05/28/21 23:59 23:59 23:59 Intake Total 2300 / 2300 250 / 250 Balance 2300 / 2300 250 / 250 Lab / Micro Data Result Diagrams: 05/28/21 07:04 05/28/21 07:04 Labs: Laboratory Results - last 24 hr 05/27/21 06:55: WBC 2.7 L, RBC 4.47, Hgb 12.5, Hct 38.0, MCV 85.0, MCH 28.0, MCHC 32.9, RDW Std Deviation 41.9, RDW Coeff of Ela 13.3, Plt Count 175, MPV 9.6, Immature Gran % (Auto) 0.400, Neut % (Auto) 78.0 H, Lymph % (Auto) 17.1 L, [place] % (Auto) 4.1, Eos % (Auto) 0.0, Baso % (Auto) 0.4, Absolute Neuts (auto) 2.1, Absolute Lymphs (auto) 0.46 L, Nucleated RBC % 0, Differential Comment SCANNED, Diff Path Review January foll 05/27/21 06:55: Sodium 137, Potassium 3.8, Chloride 106, Carbon Dioxide 26.0, Anion Gap 5, BUN 12, Creatinine 0.75, Estim Creat Clear Calc 66.30, Est GFR (MDRD) Af Amer 101, Est GFR (MDRD) Non-Af 83, BUN/Creatinine Ratio 16.0, Glucose 131 H, Calcium 7.9 L, Total Bilirubin 0.40, AST 63 H, ALT 119 H, Alkaline Phosphatase 130 H, Total Protein 6.5, Albumin 2.9 L, Globulin 3.6, Albumin/Globulin Ratio 0.8 L 05/28/21 07:04: WBC 6.2, RBC 4.45, Hgb 12.4, Hct 37.6, MCV 84.5, MCH 27.9, MCHC 33.0, RDW Std Deviation 41.3, RDW Coeff of Ela 13.3, Plt Count 237, MPV 9.4, Immature Gran % (Auto) 0.300, Neut % (Auto) 77.1 H, Lymph % (Auto) 15.1 L, [place] % (Auto) 6.9, Eos % (Auto) 0.0, Baso % (Auto) 0.6, Absolute Neuts (auto) 4.8, Absolute Lymphs (auto) 0.94, Nucleated RBC % 0 05/28/21 07:04: Sodium 136, Potassium 3.9, Chloride 104, Carbon Dioxide 26.0, Anion Gap 6, BUN 14, Creatinine 0.81, Estim Creat Clear Calc 61.39, Est GFR (MDRD) Af Amer 91, Est GFR (MDRD) Non-Af 76, BUN/Creatinine Ratio 17.2, Glucose 95, Calcium 7.9 L Physical Exam Const alert, oriented x3 and no apparent distress Orientation / Consciousness: lethargic Exam Limitations: no limitations HEENT head/scalp atraumatic, moist oral mucous membranes and oropharynx normal Head and Scalp: normocephalic Mouth: dry mucous membranes Eyes PERRL, EOMs intact bilaterally and conjunctivae normal Neck no lymphadenopathy Resp Resp Narrative: diminished breath sounds bibasally, no wheezes or crackles. On 6L of oxygen by nasal canula. Cardio regular rate, regular rhythm, S1 normal heart sound, S2 normal heart sound and no murmurs GI normal to inspection, nondistended, normoactive bowel sounds, soft to palpation, non-tender and non-distended Extremity normal to inspection, full ROM and no clubbing, cyanosis or edema Peripheral Pulses: Yes pulses 2+ throughout Skin no rashes or lesions noted Neuro oriented x3, CN's II-XII intact bilaterally and moves all extremities Sensorium / Orientation: awake and alert Psych affect normal Assessment & Plan Assessment/Plan (1) Acute respiratory distress syndrome (ARDS) due to severe acute respiratory syndrome coronavirus 2 (SARS-CoV-2): (2) Respiratory failure: QUALIFIERS: Chronicity: acute Respiratory failure complication: hypoxia Qualified Code(s): J96.01 - Acute respiratory failure with hypoxia PLAN: #Acute hypoxic respiratory failure due to COVID 19 infection * patient now on 6L of oxygen; feels much weaker today. * on decadrone and remdesivir * breathing treatment wtih bronchodilators. * titrate oxygen to maintain sats >90% * CTA of the chest was negative for PE * consult pulmonology in light of her worsening weakness and increasing oxygen requirements * #ELevated liver enzymes * liver enzymes mildly elevated. Will trend and monitor. If elevation worsens, consider discontinuing remdesivir. * #Hypothyroidism: on synthroid #Hyperlipidemia: on ezetemibe #Rheumatoid arthritis: on plaquenil #Depression: on bupropion. DVT prophylaxis: lovenox 30mg bid. Charges/Coding Visit Charges Inpatient E&M: 29806 Subs Hosp L3
[2021-05-28] MEDS: dexAMETHasone 10 MG/ML Vial 6 MG IV (11:23)
[2021-05-28] MEDS: 0.9% Normal Saline 1,000 ML 75 ML IV (11:23)
[2021-05-28 11:37] LABS: AST(SGOT) 94 U/L (15-37); Alanine Aminotransfer ALT/SGPT 134 U/L (13-56); Albumin, Serum 2.8 g/dL (3.2-5.0); Alkaline Phosphatase 124 U/L (45-117); Globulin 3.6 g/dL (2.2-4.2); Protein, Total 6.4 g/dL (6.4-8.2)
--- NOTE | 2021-05-28 12:20 | CASEMGMT ---
CARLTON VERDUZCO Assessment: Face to Face with pt for initial transition planning/care coordination assessment. CALRTON VEDRUZCO introduced self and role at [facility], pt voices understanding and consents to assessment. Pt is A/O x4 and answers all questions appropriately at this time. Pt lying in bed with O2 on stating she is very tired. Care providers, pharmacy, and demographics verified/updated. Admitting Dx: SARS COV 2 PCP:Ariana Nieves at the [facility] Specialists:Pt denies Preferred [facility]acy: [facility] Insurance: [facility] [employer] [facility] Prescription Benefit: yes LW/HPOA: Pt denies having a LW/DPOA and denies for info regarding. She asked who would make her decisions if she could not if she does not have a DPOA. She is aware that it would be her . Pt states that is good. LNOK: Ras Giang, Living Arrangements: Pt lives with and son in a single story house with 3 steps to enter. Pt reports being I in ADL's and denies concerns at home. Transportation: Pt drives self and denies concerns with transportation. DME/HHC/SNF: Pt has a CPAP machine at home through the [facility]. Denies hx of HHC or SNF stays. Pt states she was first tested for COVID at the [facility] urgent care on [facility] in [place]. Pt is also covid positive and she states she was taking care of him. Pt does have family who is able to provide her with groceries and supplies while she quarantines. Pt denies any preference for O2 providers should she need O2 upon dc. Pt states no concerns with going home at time of dc. Pt states no further concerns/needs. CM to follow. Advised pt to ask CM if any further question/concerns/needs arise, voices understanding. Pt Goal: Home Plan: Home
--- NOTE | 2021-05-28 13:47 | CON.PCM.CC_ITS ---
Assessment & Plan Assessment/Plan (1) Acute respiratory distress syndrome (ARDS) due to severe acute respiratory syndrome coronavirus 2 (SARS-CoV-2): PLAN: RECOMMENDATIONS: 1. Continue to wean supplemental oxygen to maintain saturations at or above 90%. 2. Continue remdesivir as ordered. Continue to monitor liver and renal function. 3. Continue Decadron to complete 10-day treatment course. 4. Continue Lovenox twice daily. 5. Stop continuous IV fluids. 6. Consider gentle diuresis as tolerated by hemodynamics and renal function. 7. Awake prone positioning was encouraged. IMPRESSIONS: 1. Acute hypoxemic respiratory failure secondary to COVID-19 pneumonia The patient presented to the hospital with under 1 week of progressive respiratory symptoms and was subsequently found to be positive for coronavirus with bilateral airspace opacities on chest imaging. She is currently maintaining appropriate oxygen saturations on 6 L/min. She will be continued on remdesivir. We will continue to monitor liver and renal function accordingly. Continue Decadron to complete 10-day treatment course. I would recommend discontinuation of fluids and consideration for IV diuretic therapy. Awake prone positioning was encouraged. Continue Lovenox twice daily as ordered. Wean supplemental oxygen to maintain saturations at or above 90%. If the patient were to decompensate, I would recommend that repeat chest x-ray be obtained and empiric antimicrobials initiated. 2. History of rheumatoid arthritis on hydroxychlor oquine/hypothyroidism/depression/hyperlipidemia Complicates care, management, recovery and prognosis. Continue home medications as indicated. This note was generated with [employer] dictation software. It may contain incorrect words, spelling, and punctuation that were not noted in checking the note before signing. HPI Consult Data Date of Consult: 05/29/21 HPI Narrative Reason for Consultation: Acute hypoxemic respiratory failure secondary to COVID- 19 pneumonia HPI Narrative: The patient is a 61-year-old female, with a history as outlined below, who presented to the emergency department on May 27 with complaints of fevers, chills, malaise, cough and dyspnea. The patient is currently day 7 of symptoms. She does report sick contact exposure to her , who was diagnosed with coronavirus. She is an unvaccinated individual. She does have a history of rheumatoid arthritis and is currently on Plaquenil at baseline. On presentation to the emergency department, the patient was noted to be afebri le and hemodynamically stable. D-dimer was noted to be 1.10. Chemistry profile was largely unremarkable. AST and ALT were increased to 75 and 136, respectively. CTA chest showed no evidence for PE. Bilateral multifocal infiltrates were noted. [facility] Medical History Cervical vertebral fusion Depression Hypothyroid Home Medications bupropion HCl (smoking deter) 150 mg PO DAILY 10/03/19 [History Last Taken Unknown] levothyroxine 125 mcg PO DAILY 10/03/19 [History Last Taken Unknown] sertraline 75 mg PO DAILY 10/03/19 [History Last Taken Unknown] ezetimibe [Zetia] 10 mg PO QHS 05/27/21 [History Last Taken Unknown] hydroxychloroquine [Plaquenil] 200 mg PO BID 05/27/21 [History Last Taken Unknown] Allergy/AdvReac Type Severity Reaction Status Date / Time No Known Allergies Allergy Verified 10/03/19 13:49 Family History Other Cancer Diabetes Heart disease Surgical History History of lung biopsy Previous section Social History Smoking Status: Former smoker ROS Constitutional Constitutional: Reports body ache(s), chills, fatigue and fever(s) Eyes Eyes: Denies blurry vision or change in vision ENT HEENT: Reports headache(s); Denies dysphagia or epistaxis Cardiovascular Cardiovascular: Reports dyspnea; Denies chest pain or edema Respiratory/Chest Respiratory/Chest: Reports cough and dyspnea Gastrointestinal Gastrointestinal: Denies abdominal pain, diarrhea, nausea or vomiting Genitourinary Genitourinary: Denies difficulty urinating Musculoskeletal Musculoskeletal: Reports myalgias; Denies arthralgias Integumentary Integumentary: Denies lesions, rash or skin ulcer Neurologic Neurologic: Denies abnormal gait or abnormal speech Psychiatric Psychiatric: Denies anxiety or depression Endocrine Endocrinology: Reports fatigue Hematologic/Lymphatic Hematologic/Lymphatic: Denies easy bleeding or easy bruising Physical Exam Const alert General Appearance: cooperative and ill appearing Nutritional Appearance: obese HEENT normocephalic and head/scalp atraumatic Eyes PERRL and EOMs intact bilaterally Neck supple General: trachea midline Chest inspection of chest normal Resp Effort and Inspection: tachypneic and actively coughing Auscultation: diminished lung sounds; Negative for rales, rhonchi or wheezes Cardio regular rate and regular rhythm GI normal to inspection, nondistended, normoactive bowel sounds Extremity no clubbing, cyanosis or edema Skin no rashes or lesions noted Neuro moves all extremities and no focal motor deficits Psych Mood & Affect: anxious Lab / Micro Data Result Diagrams: 05/29/21 06:50 05/28/21 07:04 Labs: Laboratory Results - last 24 hr 05/28/21 07:04: WBC 6.2, RBC 4.45, Hgb 12.4, Hct 37.6, MCV 84.5, MCH 27.9, MCHC 33.0, RDW Std Deviation 41.3, RDW Coeff of Ela 13.3, Plt Count 237, MPV 9.4, Immature Gran % (Auto) 0.300, Neut % (Auto) 77.1 H, Lymph % (Auto) 15.1 L, [place] % (Auto) 6.9, Eos % (Auto) 0.0, Baso % (Auto) 0.6, Absolute Neuts (auto) 4.8, Absolute Lymphs (auto) 0.94, Nucleated RBC % 0 05/28/21 07:04: Sodium 136, Potassium 3.9, Chloride 104, Carbon Dioxide 26.0, Anion Gap 6, BUN 14, Creatinine 0.81, Estim Creat Clear Calc 61.39, Est GFR (MDRD) Af Amer 91, Est GFR (MDRD) Non-Af 76, BUN/Creatinine Ratio 17.2, Glucose 95, Calcium 7.9 L 05/28/21 07:04: Total Bilirubin 0.40, Direct Bilirubin 0.20, AST 94 H, ALT 134 H , Alkaline Phosphatase 124 H, Total Protein 6.4, Albumin 2.8 L, Globulin 3.6 Charges/Coding Visit Charges Inpatient E&M: 49967 Init Hosp L3
[2021-05-28 15:03] VITALS: BP 109/60; PULSE 64; RESP 18; TEMP 37.3; O2SAT 94
[2021-05-28 21:34] VITALS: BP 130/68; PULSE 61; RESP 18; TEMP 37; O2SAT 94
[2021-05-28] MEDS: MELATONIN 3 MG TABLET PO (23:55)
[2021-05-29] VITALS (11 sets, daily range): BP systolic 99–126; BP diastolic 50–66; PULSE 61–80; RESP 18–28; TEMP 36.4–37.7; O2SAT 91–96
[2021-05-29 07:18] LABS: Absolute Lymphocyte Count 1.18 X10^3/uL (0.83-4.51); Absolute Neutrophil Count 3.1 X10^3/uL (2.0-7.7); Basophil# 0.02 X10^3/uL; Basophil% 0.4 % (0-1); Hematocrit 37.9 % (37-47); Hemoglobin 12.1 g/dL (12.0-15.0); Lymphocyte # 1.18 X10^3/ul (0.83-4.51); Lymphocyte % 23.9 % (19-41); Mean Corp Hgb Conc 31.9 g/dL (32-36); Mean Corpuscular Hgb 27.4 pg (27.0-32.0); Mean Corpuscular Volume 85.7 fL (81-99); Mean Platelet Vol. 9.3 fl (6.2-12.0); Monocyte% 12.1 % (0-10); NRBC Flagged by Analyzer 0 % (0-5); Neutrophil # 3.12 X10^3/uL (2.7-7.7); Neutrophil % 63.2 % (47-70); Platelet Count 249 K/mm3 (150-450); RBC Distribution Width CV 13.3 % (11.6-14.6); Red Blood Count 4.42 M/mm3 (4.2-5.4); White Blood Count 4.9 K/mm3 (4.4-11.0)
[2021-05-29 07:51] LABS: Anion Gap 3 (5-15); BUN 14 mg/dL (7-18); BUN/Creat Ratio 21.8 RATIO (10-20); Calcium,Total 7.9 mg/dL (8.5-10.1); Chloride 105 mmol/L (98-107); Creatinine, Serum 0.64 mg/dL (0.55-1.02); EST Glomerular Filtration Rate 99 mL/min (>60); Est Glom Filt Rate - Afr Amer 120 mL/min (>60); Estimated Creatinine Clearance 77.69 ml/min; Glucose 90 mg/dL (74-106); Potassium 3.7 mmol/L (3.5-5.1); Sodium Level 136 mmol/L (136-145)
[2021-05-29 09:31] LABS: Pathologist Review Reviewed
[2021-05-29] MEDS: Loperamide 2 MG Capsule PO (09:42)
[2021-05-29] MEDS: guaiFENesin 1,200 MG Tablet 1200 MG PO ×2 (09:42→20:54)
[2021-05-29] MEDS: 0.9% Saline Lock 10 ML Syringe IV ×3 (09:42→13:32)
[2021-05-29] MEDS: Enoxaparin 30 MG/0.3 ML Syringe SC ×2 (09:43→20:53)
[2021-05-29] MEDS: Sertraline 50 MG Tablet 75 MG PO (09:43)
[2021-05-29] MEDS: Levothyroxine 125 MCG Tablet PO (09:44)
[2021-05-29] MEDS: buPROPion (SR) 150 MG Tablet.SA PO (09:44)
[2021-05-29] MEDS: dexAMETHasone 10 MG/ML Vial 6 MG IV (09:45)
[2021-05-29] MEDS: Ondansetron 4 MG/2 ML Vial IV (09:51)
--- NOTE | 2021-05-29 11:13 | NURSING ---
brother Bello [phone]
--- NOTE | 2021-05-29 12:20 | CASEMGMT ---
Pt screened using [facility] Palliative Care Screening Tool, pt did not meet criteria.
--- NOTE | 2021-05-29 12:21 | PCM.PN.HOSP ---
Subjective Subjective Patient seen and examined. She felt a bit better today. She was coughing during review. She did have a mild fever this morning of 99.8 Fahrenheit. She remains on 6 L of oxygen. Objective Data Objective Data Vital Signs: Vital Signs Temp Pulse Resp BP Pulse Ox 99.8 F H 64 24 H 126/66 H 95 05/29/21 09:38 05/29/21 09:38 05/29/21 09:38 05/29/21 09:38 05/29/21 09:38 Oxygen Flow Rate (L/min) 6 Oxygen Delivery Method Nasal Cannula Weight: 179 lb 14.355 oz Body Mass Index (BMI) 30.9 Intake & Output: Intake and Output for Last 24 Hours 05/27/21 05/28/21 05/29/21 23:59 23:59 23:59 Intake Total 2300 / 2300 515 / 815 950 / 950 Balance 2300 / 2300 515 / 815 950 / 950 Lab / Micro Data Result Diagrams: 05/29/21 06:50 05/29/21 06:50 Labs: Laboratory Results - last 24 hr 05/27/21 06:55: Diff Path Review Reviewed 05/29/21 06:50: WBC 4.9, RBC 4.42, Hgb 12.1, Hct 37.9, MCV 85.7, MCH 27.4, MCHC 31.9 L, RDW Std Deviation 42.0, RDW Coeff of Ela 13.3, Plt Count 249, MPV 9.3, Immature Gran % (Auto) 0.400, Neut % (Auto) 63.2, Lymph % (Auto) 23.9, [place] % (Auto) 12.1 H, Eos % (Auto) 0.0, Baso % (Auto) 0.4, Absolute Neuts (auto) 3.1, Absolute Lymphs (auto) 1.18, Nucleated RBC % 0 05/29/21 06:50: Sodium 136, Potassium 3.7, Chloride 105, Carbon Dioxide 28.0, Anion Gap 3 L, BUN 14, Creatinine 0.64, Estim Creat Clear Calc 77.69, Est GFR (MDRD) Af Amer 120, Est GFR (MDRD) Non-Af 99, BUN/Creatinine Ratio 21.8 H, Glucose 90, Calcium 7.9 L Micro: Microbiology 05/26/21 21:39 Blood Culture (Wb) - Anticubital Left Blood Culture - Preliminary No growth in 48 hours. Physical Exam Const alert, oriented x3 and no apparent distress Orientation / Consciousness: lethargic Exam Limitations: no limitations HEENT head/scalp atraumatic, moist oral mucous membranes and oropharynx normal Head and Scalp: normocephalic Eyes PERRL, EOMs intact bilaterally and conjunctivae normal Neck no lymphadenopathy Resp Resp Narrative: diminished breath sounds bibasally, no wheezes or crackles.still On 6L of oxygen by nasal canula. Cardio regular rate, regular rhythm, S1 normal heart sound, S2 normal heart sound and no murmurs GI normal to inspection, nondistended, normoactive bowel sounds, soft to palpation, non-tender and non-distended Extremity normal to inspection, full ROM and no clubbing, cyanosis or edema Peripheral Pulses: Yes pulses 2+ throughout Skin no rashes or lesions noted Neuro oriented x3, CN's II-XII intact bilaterally and moves all extremities Sensorium / Orientation: awake and alert Psych affect normal Assessment & Plan Assessment/Plan (1) Acute respiratory distress syndrome (ARDS) due to severe acute respiratory syndrome coronavirus 2 (SARS-CoV-2): (2) Respiratory failure: QUALIFIERS: Chronicity: acute Respiratory failure complication: hypoxia Qualified Code(s): J96.01 - Acute respiratory failure with hypoxia PLAN: #Acute hypoxic respiratory failure due to COVID 19 infection patient still 6L of oxygen;still feels quite weak on decadrone and remdesivir breathing treatment wtih bronchodilators. titrate oxygen to maintain sats >90% CTA of the chest was negative for PE pulmonology consulted. #ELevated liver enzymes liver enzymes mildly elevated; trended down slightly yesterday. Pending today. Will trend and monitor. If elevation worsens, consider discontinuing remdesivir. #Hypothyroidism: on synthroid #Hyperlipidemia: on ezetemibe #Rheumatoid arthritis: on plaquenil #Depression: on bupropion. DVT prophylaxis: lovenox 30mg bid. Charges/Coding Visit Charges Inpatient E&M: 16618 [facility] Hosp L3
--- NOTE | 2021-05-29 12:25 | PCM.PN.INT ---
Assessment & Plan Assessment/Plan (1) Acute respiratory distress syndrome (ARDS) due to severe acute respiratory syndrome coronavirus 2 (SARS-CoV-2): PLAN: RECOMMENDATIONS: 1. Continue to wean supplemental oxygen to maintain saturations at or above 90%. 2. Continue remdesivir as ordered. Continue to monitor liver and renal function. 3. Continue Decadron to complete 10-day treatment course. 4. Continue Lovenox twice daily. 5. Administer IV Lasix x1 today. 6. Awake prone positioning was encouraged. IMPRESSIONS: 1. Acute hypoxemic respiratory failure secondary to COVID-19 pneumonia The patient presented to the hospital with under 1 week of progressive respiratory symptoms and was subsequently found to be positive for coronavirus with bilateral airspace opacities on chest imaging. She is currently maintaining appropriate oxygen saturations on 6 L/min. She will be continued on remdesivir. We will continue to monitor liver and renal function accordingly. Continue Decadron to complete 10-day treatment course. Awake prone positioning was encouraged. Continue Lovenox twice daily as ordered. Wean supplemental oxygen to maintain saturations at or above 90%. If the patient were to decompensate, I would recommend that repeat chest x-ray be obtained and empiric antimicrobials initiated. IV Lasix will be given today. 2. History of rheumatoid arthritis on hydroxychloroquine/hypothyroidism/depression/hyperlipidemia Complicates care, management, recovery and prognosis. Continue home medications as indicated. This note was generated with [employer] dictation software. It may contain incorrect words, spelling, and punctuation that were not noted in checking the note before signing. Subjective Subjective The patient was seen and examined at the bedside this morning. Events from the last 24 hours have been reviewed. The patient is currently afebrile, hemodynamically stable and maintaining appropriate oxygen saturations on 6 L/min via nasal cannula. The patient remains on remdesivir, Decadron and twice daily Lovenox. Objective Data Objective Data The patient's most recent lab work, culture data and imaging studies have all been personally reviewed. Vital Signs: Vital Signs Temp Pulse Resp BP Pulse Ox 99.8 F H 64 24 H 126/66 H 95 05/29/21 09:38 05/29/21 09:38 05/29/21 09:38 05/29/21 09:38 05/29/21 09:38 Oxygen Flow Rate (L/min) 6 Oxygen Delivery Method Nasal Cannula Weight: 81.6 kg Body Mass Index (BMI) 30.9 Intake & Output: Intake and Output for Last 24 Hours 05/27/21 05/28/21 05/29/21 23:59 23:59 23:59 Intake Total 2300 / 2300 515 / 815 950 / 950 Balance 2300 / 2300 515 / 815 950 / 950 Lab / Micro Data Attestation: I reviewed the patient's lab results. Result Diagrams: 05/29/21 06:50 05/29/21 06:50 Labs: Laboratory Results - last 24 hr 05/27/21 06:55: Diff Path Review Reviewed 05/29/21 06:50: WBC 4.9, RBC 4.42, Hgb 12.1, Hct 37.9, MCV 85.7, MCH 27.4, MCHC 31.9 L, RDW Std Deviation 42.0, RDW Coeff of Ela 13.3, Plt Count 249, MPV 9.3, Immature Gran % (Auto) 0.400, Neut % (Auto) 63.2, Lymph % (Auto) 23.9, [place] % (Auto) 12.1 H, Eos % (Auto) 0.0, Baso % (Auto) 0.4, Absolute Neuts (auto) 3.1, Absolute Lymphs (auto) 1.18, Nucleated RBC % 0 05/29/21 06:50: Sodium 136, Potassium 3.7, Chloride 105, Carbon Dioxide 28.0, Anion Gap 3 L, BUN 14, Creatinine 0.64, Estim Creat Clear Calc 77.69, Est GFR (MDRD) Af Amer 120, Est GFR (MDRD) Non-Af 99, BUN/Creatinine Ratio 21.8 H, Glucose 90, Calcium 7.9 L Micro: Microbiology 05/26/21 21:39 Blood Culture (Wb) - Anticubital Left Blood Culture - Preliminary No growth in 48 hours. Physical Exam Const alert General Appearance: cooperative and ill appearing Nutritional Appearance: obese HEENT normocephalic and head/scalp atraumatic Eyes PERRL and EOMs intact bilaterally Neck supple General: trachea midline Chest inspection of chest normal Resp Effort and Inspection: tachypneic; Negative for actively coughing Auscultation: diminished lung sounds; Negative for rales, rhonchi or wheezes Cardio regular rate and regular rhythm GI normal to inspection, nondistended, normoactive bowel sounds Extremity no clubbing, cyanosis or edema Skin no rashes or lesions noted Neuro moves all extremities and no focal motor deficits Psych Mood & Affect: anxious Charges/Coding Visit Charges Inpatient E&M: 93274 Subs Hosp L2
[2021-05-29 13:20] LABS: AST(SGOT) 57 U/L (15-37); Alanine Aminotransfer ALT/SGPT 116 U/L (13-56); Albumin, Serum 2.6 g/dL (3.2-5.0); Alkaline Phosphatase 113 U/L (45-117); Bilirubin, Direct 0.12 mg/dL (0.00-0.30); Globulin 3.5 g/dL (2.2-4.2); Protein, Total 6.1 g/dL (6.4-8.2)
[2021-05-29] MEDS: NYSTATIN 500,000 UNIT/5 ML UDC 500000 UNIT PO ×2 (17:48→20:53)
--- NOTE | 2021-05-29 21:17 | NURSING ---
Patient assisted into prone position during this time.
[2021-05-29] MEDS: Zolpidem Tartrate 5 MG Tablet PO (23:17)
[2021-05-30] VITALS (12 sets, daily range): BP systolic 92–133; BP diastolic 52–76; PULSE 58–90; RESP 18–20; TEMP 36.5–37.1; O2SAT 87–97
[2021-05-30 07:51] LABS: Absolute Lymphocyte Count 1.55 X10^3/uL (0.83-4.51); Absolute Neutrophil Count 3.2 X10^3/uL (2.0-7.7); Basophil# 0.04 X10^3/uL; Basophil% 0.8 % (0-1); Eosinophil# 0.01 X10^3/uL; Eosinophils% 0.2 % (0-5); Hematocrit 39.5 % (37-47); Hemoglobin 12.5 g/dL (12.0-15.0); Lymphocyte # 1.55 X10^3/ul (0.83-4.51); Lymphocyte % 29.3 % (19-41); Mean Corp Hgb Conc 31.6 g/dL (32-36); Mean Corpuscular Hgb 27.6 pg (27.0-32.0); Mean Corpuscular Volume 87.2 fL (81-99); Mean Platelet Vol. 9.2 fl (6.2-12.0); Monocyte# 0.47 X10^3/uL; Monocyte% 8.9 % (0-10); NRBC Flagged by Analyzer 0 % (0-5); Neutrophil # 3.17 X10^3/uL (2.7-7.7); Neutrophil % 59.9 % (47-70); Platelet Count 318 K/mm3 (150-450); RBC Distribution Width CV 13.4 % (11.6-14.6); Red Blood Count 4.53 M/mm3 (4.2-5.4); White Blood Count 5.3 K/mm3 (4.4-11.0)
[2021-05-30 08:00] LABS: Anion Gap 7 (5-15); BUN 14 mg/dL (7-18); BUN/Creat Ratio 18.5 RATIO (10-20); Calcium,Total 8.1 mg/dL (8.5-10.1); Chloride 106 mmol/L (98-107); Creatinine, Serum 0.76 mg/dL (0.55-1.02); EST Glomerular Filtration Rate 82 mL/min (>60); Est Glom Filt Rate - Afr Amer 99 mL/min (>60); Estimated Creatinine Clearance 65.43 ml/min; Glucose 100 mg/dL (74-106); Potassium 3.4 mmol/L (3.5-5.1); Sodium Level 140 mmol/L (136-145)
[2021-05-30] MEDS: Sertraline 50 MG Tablet 75 MG PO (10:27)
[2021-05-30] MEDS: Enoxaparin 30 MG/0.3 ML Syringe SC ×2 (10:27→21:23)
[2021-05-30] MEDS: Loperamide 2 MG Capsule PO (10:27)
[2021-05-30] MEDS: NYSTATIN 500,000 UNIT/5 ML UDC 500000 UNIT PO ×4 (10:27→21:25)
[2021-05-30] MEDS: guaiFENesin 1,200 MG Tablet 1200 MG PO ×2 (10:27→21:24)
[2021-05-30] MEDS: Levothyroxine 125 MCG Tablet PO (10:27)
--- NOTE | 2021-05-30 10:33 | PN.CC_ITS ---
Assessment & Plan Assessment/Plan (1) Acute respiratory distress syndrome (ARDS) due to severe acute respiratory syndrome coronavirus 2 (SARS-CoV-2): PLAN: RECOMMENDATIONS: 1. Continue to wean supplemental oxygen to maintain saturations at or above 90%. 2. Continue remdesivir as ordered. Continue to monitor liver and renal function. 3. Continue Decadron to complete 10-day treatment course. 4. Continue Lovenox twice daily. 5. Potassium repletion as ordered. 6. Encourage incentive spirometer use and mobilize patient as tolerated. IMPRESSIONS: 1. Acute hypoxemic respiratory failure secondary to COVID-19 pneumonia The patient presented to the hospital with under 1 week of progressive respiratory symptoms and was subsequently found to be positive for coronavirus with bilateral airspace opacities on chest imaging. She will be continued on remdesivir. We will continue to monitor liver and renal function accordingly. Continue Decadron to complete 10-day treatment course. Awake prone positioning was encouraged. Continue Lovenox twice daily as ordered. Wean supplemental oxygen to maintain saturations at or above 90%. If the patient were to decompensate, I would recommend that repeat chest x-ray be obtained and empiric antimicrobials initiated. Continue attempts at gentle diuresis as tolerated by hemodynamics and renal function. 2. Hypokalemia Electrolyte repletion as ordered. Recheck levels in the morning. 3. History of rheumatoid arthritis on hydroxychloroquine/hypoth yroidism/depression/hyperlipidemia Complicates care, management, recovery and prognosis. Continue home medications as indicated. This note was generated with [employer] dictation software. It may contain incorrect words, spelling, and punctuation that were not noted in checking the note before signing. Subjective Subjective The patient was seen and examined at the bedside this morning. Events from the last 24 hours have been reviewed. The patient is currently afebrile, hemodynamically stable and maintaining appropriate oxygen saturations on 6 L/min via nasal cannula. The patient is currently documented to be overall net +4.2 L for the hospital admission. She remains on remdesivir, Decadron and twice daily Lovenox. Potassium is low this morning at 3.4. Creatinine remains stable. Objective Data Objective Data The patient's most recent lab work, culture data and imaging studies have all been personally reviewed. Vital Signs: Vital Signs Temp Pulse Resp BP Pulse Ox 98.0 F 58 L 20 H 92/52 L 95 05/30/21 10:24 05/30/21 10:24 05/30/21 10:24 05/30/21 10:24 05/30/21 10:24 Oxygen Flow Rate (L/min) 6 Oxygen Delivery Method Nasal Cannula Weight: 81.6 kg Body Mass Index (BMI) 30.9 Intake & Output: Intake and Output for Last 24 Hours 05/28/21 05/29/21 05/30/21 23:59 23:59 23:59 Intake Total 515 / 815 1450 / 1450 Balance 515 / 815 1450 / 1450 Lab / Micro Data Attestation: I reviewed the patient's lab results. Result Diagrams: 05/30/21 07:00 05/30/21 07:00 Labs: Laboratory Results - last 24 hr 05/29/21 06:50: Total Bilirubin 0.40, Direct Bilirubin 0.12, AST 57 H, ALT 116 H , Alkaline Phosphatase 113, Total Protein 6.1 L, Albumin 2.6 L, Globulin 3.5 05/30/21 07:00: WBC 5.3, RBC 4.53, Hgb 12.5, Hct 39.5, MCV 87.2, MCH 27.6, MCHC 31.6 L, RDW Std Deviation 43.0, RDW Coeff of Ela 13.4, Plt Count 318, MPV 9.2, Immature Gran % (Auto) 0.900, Neut % (Auto) 59.9, Lymph % (Auto) 29.3, [place] % (Auto) 8.9, Eos % (Auto) 0.2, Baso % (Auto) 0.8, Absolute Neuts (auto) 3.2, Absolute Lymphs (auto) 1.55, Nucleated RBC % 0 05/30/21 07:00: Sodium 140, Potassium 3.4 L, Chloride 106, Carbon Dioxide 27.0, Anion Gap 7, BUN 14, Creatinine 0.76, Estim Creat Clear Calc 65.43, Est GFR (MDRD) Af Amer 99, Est GFR (MDRD) Non-Af 82, BUN/Creatinine Ratio 18.5, Glucose 100, Calcium 8.1 L Micro: Microbiology 05/26/21 21:39 Blood Culture (Wb) - Anticubital Left Blood Culture - Preliminary No growth in 48 hours. Physical Exam Const alert and no apparent distress General Appearance: cooperative Nutritional Appearance: obese HEENT normocephalic and head/scalp atraumatic Eyes PERRL and EOMs intact bilaterally Neck supple General: trachea midline Chest inspection of chest normal Resp Effort and Inspection: Negative for actively coughing Auscultation: diminished lung sounds; Negative for rales, rhonchi or wheezes Cardio regular rate and regular rhythm GI normal to inspection, nondistended, normoactive bowel sounds Extremity no clubbing, cyanosis or edema Skin no rashes or lesions noted Neuro moves all extremities and no focal motor deficits Psych Mood & Affect: flat affect Charges/Coding Visit Charges Inpatient E&M: 75293 Subs Hosp L2
[2021-05-30] MEDS: dexAMETHasone 10 MG/ML Vial 6 MG IV (11:37)
[2021-05-30] MEDS: Potassium Chloride 10mEq/100mL 10 MEQ/100 ML IV.SOLN. 100 MEQ IV BOLUS (11:39)
[2021-05-30] MEDS: 0.9% Saline Lock 10 ML Syringe IV ×2 (11:44→21:20)
[2021-05-30] MEDS: Potassium Chloride Oral Tablet 20 MEQ 40 MEQ PO (14:00)
[2021-05-30] MEDS: buPROPion (SR) 150 MG Tablet.SA PO (14:00)
--- NOTE | 2021-05-30 15:27 | CASEMGMT ---
CARLTON VERDUZCO updated that patient will need home oxygen at discharge. [facility]. Script received from hospitalist for home oxgyen. Referral made to [facility] and message left for December RT at [facility] and paperwork faxed to [facility]. CM will continue to follow this patient and plan for a safe discharge.
--- NOTE | 2021-05-30 16:25 | PN.HOSP_ITS ---
Subjective Subjective Patient seen and examined. She did feel better today and had no active complaints. Review of systems otherwise negative. She remained on 5 L of oxygen. She has otherwise remained hemodynamically stable. Objective Data Objective Data Vital Signs: Vital Signs Temp Pulse Resp BP Pulse Ox 97.7 F L 80 20 H 114/76 87 05/30/21 14:07 05/30/21 14:22 05/30/21 14:07 05/30/21 14:07 05/30/21 14:10 Oxygen Flow Rate (L/min) [At 3 REST with Oxygen] Oxygen Flow Rate (L/min) [ 5 AMBULATING with Oxygen #1] Oxygen Flow Rate (L/min) 3 Oxygen Delivery Method Nasal Cannula Weight: 179 lb 14.355 oz Body Mass Index (BMI) 30.9 Intake & Output: Intake and Output for Last 24 Hours 05/28/21 05/29/21 05/30/21 23:59 23:59 23:59 Intake Total 515 / 815 1450 / 1450 135.75 / 135.75 Balance 515 / 815 1450 / 1450 135.75 / 135.75 Lab / Micro Data Result Diagrams: 05/30/21 07:00 05/30/21 07:00 Labs: Laboratory Results - last 24 hr 05/30/21 07:00: WBC 5.3, RBC 4.53, Hgb 12.5, Hct 39.5, MCV 87.2, MCH 27.6, MCHC 31.6 L, RDW Std Deviation 43.0, RDW Coeff of Ela 13.4, Plt Count 318, MPV 9.2, Immature Gran % (Auto) 0.900, Neut % (Auto) 59.9, Lymph % (Auto) 29.3, [place] % (Auto) 8.9, Eos % (Auto) 0.2, Baso % (Auto) 0.8, Absolute Neuts (auto) 3.2, Absolute Lymphs (auto) 1.55, Nucleated RBC % 0 05/30/21 07:00: Sodium 140, Potassium 3.4 L, Chloride 106, Carbon Dioxide 27.0, Anion Gap 7, BUN 14, Creatinine 0.76, Estim Creat Clear Calc 65.43, Est GFR (MDRD) Af Amer 99, Est GFR (MDRD) Non-Af 82, BUN/Creatinine Ratio 18.5, Glucose 100, Calcium 8.1 L Micro: Microbiology 05/26/21 21:39 Blood Culture (Wb) - Anticubital Left Blood Culture - Preliminary No growth in 48 hours. Physical Exam Const alert, oriented x3 and no apparent distress Orientation / Consciousness: lethargic Exam Limitations: no limitations HEENT head/scalp atraumatic, moist oral mucous membranes and oropharynx normal Head and Scalp: normocephalic Eyes PERRL, EOMs intact bilaterally and conjunctivae normal Neck no lymphadenopathy Resp Resp Narrative: diminished breath sounds bibasally, no wheezes or crackles. On 5L of oxygen by nasal canula. Cardio regular rate, regular rhythm, S1 normal heart sound, S2 normal heart sound and no murmurs GI normal to inspection, nondistended, normoactive bowel sounds, soft to palpation, non-tender and non-distended Extremity normal to inspection, full ROM and no clubbing, cyanosis or edema Peripheral Pulses: Yes pulses 2+ throughout Skin no rashes or lesions noted Neuro oriented x3, CN's II-XII intact bilaterally and moves all extremities Sensorium / Orientation: awake and alert Psych affect normal Assessment & Plan Assessment/Plan (1) Acute respiratory distress syndrome (ARDS) due to severe acute respiratory syndrome coronavirus 2 (SARS-CoV-2): (2) Respiratory failure: QUALIFIERS: Chronicity: acute Respiratory failure complication: hypoxia Qualified Code(s): J96.01 - Acute respiratory failure with hypoxia PLAN: #Acute hypoxic respiratory failure due to COVID 19 infection * patient on 5L of oxygen; feels quite weak today * on decadrone and remdesivir * breathing treatment wtih bronchodilators. * titrate oxygen to maintain sats >90% * CTA of the chest was negative for PE * pulmonology on board * PT OT on board. * #ELevated liver enzymes * liver enzymes mildly elevated;have remained stable * Will trend and monitor. If elevation worsens, consider discontinuing remdesivir. * #Hypothyroidism: on synthroid #Hyperlipidemia: on ezetemibe #Rheumatoid arthritis: on plaquenil #Depression: on bupropion. DVT prophylaxis: lovenox 30mg bid. Disposition: With walking pulse ox, patient needed 5 L of oxygen today also ambulating to maintain saturation above 90%. For potential discharge home tomorrow. [facility] and [facility] will take at least 24 hours so plan is to discharge patient home tomorrow if she remains med ically stable. Charges/Coding Visit Charges Inpatient E&M: 07772 Subs Hosp L2
[2021-05-30 17:30] LABS: AST(SGOT) 42 U/L (15-37); Alanine Aminotransfer ALT/SGPT 101 U/L (13-56); Albumin, Serum 2.5 g/dL (3.2-5.0); Alkaline Phosphatase 112 U/L (45-117); Bilirubin, Direct 0.11 mg/dL (0.00-0.30); Globulin 3.5 g/dL (2.2-4.2)
[2021-05-30] MEDS: Zolpidem Tartrate 5 MG Tablet PO (21:24)
[2021-05-31] VITALS (8 sets, daily range): BP systolic 97–111; BP diastolic 60–72; PULSE 58–70; RESP 18–20; TEMP 36.6–37.2; O2SAT 87–94
[2021-05-31] MEDS: Benzonatate 100 MG Capsule PO (03:25)
[2021-05-31 07:20] LABS: Absolute Lymphocyte Count 1.74 X10^3/uL (0.83-4.51); Absolute Neutrophil Count 4.7 X10^3/uL (2.0-7.7); Basophil# 0.05 X10^3/uL; Basophil% 0.7 % (0-1); Eosinophil# 0.02 X10^3/uL; Eosinophils% 0.3 % (0-5); Hematocrit 38.5 % (37-47); Hemoglobin 12.1 g/dL (12.0-15.0); Lymphocyte # 1.74 X10^3/ul (0.83-4.51); Lymphocyte % 23.9 % (19-41); Mean Corp Hgb Conc 31.4 g/dL (32-36); Mean Corpuscular Hgb 27.1 pg (27.0-32.0); Mean Corpuscular Volume 86.3 fL (81-99); Monocyte# 0.65 X10^3/uL; Monocyte% 8.9 % (0-10); NRBC Flagged by Analyzer 0 % (0-5); Neutrophil # 4.71 X10^3/uL (2.7-7.7); Neutrophil % 64.8 % (47-70); Platelet Count 372 K/mm3 (150-450); RBC Distribution Width CV 13.2 % (11.6-14.6); RBC Distribution Width SD 41.8 fl (35.1-43.9); Red Blood Count 4.46 M/mm3 (4.2-5.4); White Blood Count 7.3 K/mm3 (4.4-11.0)
[2021-05-31 08:02] LABS: Anion Gap 4 (5-15); BUN 12 mg/dL (7-18); BUN/Creat Ratio 19.3 RATIO (10-20); Calcium,Total 7.9 mg/dL (8.5-10.1); Chloride 106 mmol/L (98-107); Creatinine, Serum 0.62 mg/dL (0.55-1.02); EST Glomerular Filtration Rate 103 mL/min (>60); Est Glom Filt Rate - Afr Amer 124 mL/min (>60); Glucose 91 mg/dL (74-106); Potassium 3.9 mmol/L (3.5-5.1); Sodium Level 138 mmol/L (136-145)
[2021-05-31] MEDS: Sertraline 50 MG Tablet 75 MG PO (09:17)
[2021-05-31] MEDS: buPROPion (SR) 150 MG Tablet.SA PO (09:18)
[2021-05-31] MEDS: NYSTATIN 500,000 UNIT/5 ML UDC 500000 UNIT PO (09:18)
[2021-05-31] MEDS: guaiFENesin 1,200 MG Tablet 1200 MG PO (09:18)
[2021-05-31] MEDS: Enoxaparin 30 MG/0.3 ML Syringe SC (09:18)
[2021-05-31] MEDS: Levothyroxine 125 MCG Tablet PO (09:18)
[2021-05-31] MEDS: dexAMETHasone 10 MG/ML Vial 6 MG IV (09:19)
--- NOTE | 2021-05-31 09:34 | NURSING ---
HOME O2 QUALIFICATION TESTED , 92% ON 4L NC. PT BECAME VERY WEAK & DYSPNEIC.
--- NOTE | 2021-05-31 09:39 | PN.CC_ITS ---
Assessment & Plan Assessment/Plan (1) Acute respiratory distress syndrome (ARDS) due to severe acute respiratory syndrome coronavirus 2 (SARS-CoV-2): PLAN: RECOMMENDATIONS: 1. Continue to wean supplemental oxygen to maintain saturations at or above 90%. 2. Continue Decadron to complete 10-day treatment course. 3. Continue Lovenox twice daily. 4. Encourage incentive spirometer use and mobilize patient as tolerated. 5. Will give IV Lasix x1 today. 6. Perform walking oximetry study prior to consideration for discharge home. 7. The patient can be discharged home from my perspective when she is able to ambulate on 6 L/min or less. 8. Will sign off at this time. Please call with any additional questions. IMPRESSIONS: 1. Acute hypoxemic respiratory failure secondary to COVID-19 pneumonia The patient presented to the hospital with under 1 week of progressive respiratory symptoms and was subsequently found to be positive for coronavirus with bilateral airspace opacities on chest imaging. She has completed a treatment course of remdesivir and remains on Decadron, which will be continued to complete 10 days of therapy. Lovenox twice daily will be continued. Oxygenation status is slowly improving. Continue to wean as tolerated to maintain saturations at or above 90%. Continue gentle diuresis as tolerated by hemodynamics and renal function. 2. History of rheumatoid arthritis on hydroxychloroquine/h ypothyroidism/depression/hyperlipidemia Complicates care, management, recovery and prognosis. Continue home medications as indicated. This note was generated with [employer] dictation software. It may contain incorrect words, spelling, and punctuation that were not noted in checking the note before signing. Subjective Subjective The patient was seen and examined at the bedside this morning. Events from the last 24 hours have been reviewed. The patient is currently afebrile, hemodynamically stable and maintaining appropriate oxygen saturations on 4 L/min via nasal cannula. The patient has completed her treatment course of remdesivir. She remains on Decadron and twice daily Lovenox. Creatinine is stable. Objective Data Objective Data The patient's most recent lab work, culture data and imaging studies have all been personally reviewed. Vital Signs: Vital Signs Temp Pulse Resp BP Pulse Ox 99.0 F 61 20 H 110/60 87 05/31/21 09:10 05/31/21 09:10 05/31/21 09:10 05/31/21 09:10 05/31/21 09:34 Oxygen Flow Rate (L/min) [At 2 REST with Oxygen] Oxygen Flow Rate (L/min) [ 4 AMBULATING with Oxygen #1] Oxygen Flow Rate (L/min) 3 Oxygen Delivery Method Nasal Cannula Weight: 81.6 kg Body Mass Index (BMI) 30.9 Intake & Output: Intake and Output for Last 24 Hours 05/29/21 05/30/21 05/31/21 23:59 23:59 23:59 Intake Total 1450 / 1450 585.75 / 585.75 58 / 58 Balance 1450 / 1450 585.75 / 585.75 58 / 58 Lab / Micro Data Attestation: I reviewed the patient's lab results. Result Diagrams: 05/31/21 06:56 05/31/21 06:56 Labs: Laboratory Results - last 24 hr 05/30/21 07:00: Total Bilirubin 0.40, Direct Bilirubin 0.11, AST 42 H, ALT 101 H , Alkaline Phosphatase 112, Total Protein 6.0 L, Albumin 2.5 L, Globulin 3.5 05/31/21 06:56: WBC 7.3, RBC 4.46, Hgb 12.1, Hct 38.5, MCV 86.3, MCH 27.1, MCHC 31.4 L, RDW Std Deviation 41.8, RDW Coeff of Ela 13.2, Plt Count 372, MPV 9.0, Immature Gran % (Auto) 1.400 H, Neut % (Auto) 64.8, Lymph % (Auto) 23.9, Todd % (Auto) 8.9, Eos % (Auto) 0.3, Baso % (Auto) 0.7, Absolute Neuts (auto) 4.7, Absolute Lymphs (auto) 1.74, Nucleated RBC % 0 05/31/21 06:56: Sodium 138, Potassium 3.9, Chloride 106, Carbon Dioxide 28.0, Anion Gap 4 L, BUN 12, Creatinine 0.62, Estim Creat Clear Calc 80.20, Est GFR (MDRD) Af Amer 124, Est GFR (MDRD) Non-Af 103, BUN/Creatinine Ratio 19.3, Glucose 91, Calcium 7.9 L Micro: Microbiology 05/26/21 21:39 Blood Culture (Wb) - Anticubital Left Blood Culture - Preliminary No growth in 48 hours. Physical Exam Const alert and no apparent distress General Appearance: cooperative Nutritional Appearance: obese HEENT normocephalic and head/scalp atraumatic Eyes PERRL and EOMs intact bilaterally Neck supple General: trachea midline Chest inspection of chest normal Resp Effort and Inspection: Negative for actively coughing Auscultation: diminished lung sounds; Negative for rales, rhonchi or wheezes Cardio regular rate and regular rhythm GI normal to inspection, nondistended, normoactive bowel sounds Extremity no clubbing, cyanosis or edema Skin no rashes or lesions noted Neuro moves all extremities and no focal motor deficits Psych Mood & Affect: flat affect Charges/Coding Visit Charges Inpatient E&M: 35277 Subs Hosp L2
--- NOTE | 2021-05-31 10:28 | CASEMGMT ---
Addendum entered by Henrietta Turk 05/31/21 13:26: TC to follow up on O2 delivery. Spoke with Amy at [facility] who states that the O2 will be delivered between [address] Babb via cortext. Original Note: TC to Har[place] at the [place] regarding pt O2. She states that the order was processed this morning. TC to [facility], spoke with Dee who states it is in process and this CM will be called shortly to be made aware of approx time of delivery.
[2021-05-31] MEDS: Furosemide 40 MG/4 ML Vial IV (10:39)
[2021-05-31] MEDS: 0.9% Saline Lock 10 ML Syringe IV (10:39)
--- NOTE | 2021-05-31 13:13 | PCM.DC.SUM ---
Providers Date of Admission: 05/27/21 Primary Care Physician: [facility] Consultations 05/28/21 10:18 Consult: Testing And Regulating Technician / Pulmonary Medicine Routine Consulting Provider: Pulmonary Medicine paola Reardon Reason for Consult: acute hypoxic respiratory failure due to COVID 19 infection EMERGENT Consult: No MD Notified: Yes Date Notified: 05/28/21 Time Notified: 10:18 Method of Notification: Text Reason For Visit: SARS COV 2 Diagnosis Discharge Diagnosis (1) Acute respiratory distress syndrome (ARDS) due to severe acute respiratory syndrome coronavirus 2 (SARS-CoV-2): Status: Acute Code(s): U07.1 - COVID-19; J80 - Acute respiratory distress syndrome Medications at Discharge Home Medications bupropion HCl (smoking deter) 150 mg PO DAILY 10/03/19 levothyroxine 125 mcg PO DAILY 10/03/19 sertraline 75 mg PO DAILY 10/03/19 ezetimibe [Zetia] 10 mg PO QHS 05/27/21 hydroxychloroquine [Plaquenil] 200 mg PO BID 05/27/21 apixaban 2.5 mg PO BID #28 tab 05/31/21 dexamethasone [Decadron] 6 mg PO DAILY #5 tab 05/31/21 Hospital Course Operations None Procedures None Summary of Care Provided Minutes Spent on Discharge: 45 Hospital Course: Patient is a 61-year-old female with a past medical history of hypothyroidism and a history of histoplasmosis as well as rheumatoid arthritis and anxiety disorder as well as depression. She was admitted via the ED on 05/27/2021 with a complaint of weakness and malaise which was worsening. She had associated nausea, vomiting, diarrhea, shortness of breath, fever and chills. She also had fever with a fever of 102F. She had tested positive for COVID-19 and she was admitted and managed for acute hypoxic respiratory failure due to COVID-19 as oxygen saturation dropped to 84% on room air. Chest x-ray showed patchy bilateral pulmonary airspace disease. D-dimer was also elevated at 1.[address] of the chest was negative for PE but showed patchy multilobar pulmonary infiltrates with peripheral groundglass opacities. Patient was started on remdesivir and Decadron. His shortness of breath gradually improved and diarrhea and vomiting also resolved. Her oxygen was weaned down to 3 L of oxygen and she felt better. She remained stable and was discharged home on 05/31/2021. She had walking pulse ox which showed that she qualified for 5 L of oxygen with ambulation to maintain his saturation above 90%. She was discharged home with this course of prednisone to finish a 10-day course and with a prescription for p.o. Eliquis 2.5 mg twice daily for 2 weeks to help decrease the risk of thromboembolism with Covid. She is follow-up with her primary care doctor in 1 to 2 weeks. Patient seen and examined prior to discharge. She had no complaints and felt well. She felt much better than when she came in. Review of systems otherwise negative. Labs and vitals reviewed. Home medication reviewed and reconciled. Physical Exam Const alert, oriented x3 and no apparent distress General Appearance: cooperative, comfortable and well kempt Orientation / Consciousness: awake Exam Limitations: no limitations HEENT normocephalic, head/scalp atraumatic, moist oral mucous membranes and oropharynx normal Eyes PERRL, EOMs intact bilaterally and conjunctivae normal Neck no lymphadenopathy Resp Resp Narrative: diminished breath sounds bibasally, no wheezes or crackles. On 3L of oxygen by nasal canula. Cardio regular rate, regular rhythm, S1 normal heart sound, S2 normal heart sound and no murmurs GI normal to inspection, nondistended, normoactive bowel sounds, soft to palpation, non-tender and non-distended Extremity normal to inspection, full ROM and no clubbing, cyanosis or edema Skin no rashes or lesions noted Neuro oriented x3, CN's II-XII intact bilaterally and moves all extremities Sensorium / Orientation: awake and alert Psych affect normal Weight / BMI Weight Weight: 179 lb 14.355 oz Body Mass Index (BMI) 30.9 ABG / Lab / Microbiology Data Result Diagrams: 05/31/21 06:56 05/31/21 06:56 Laboratory: Laboratory Results - last 24 hr 05/30/21 07:00: Total Bilirubin 0.40, Direct Bilirubin 0.11, AST 42 H, ALT 101 H, Alkaline Phosphatase 112, Total Protein 6.0 L, Albumin 2.5 L, Globulin 3.5 05/31/21 06:56: WBC 7.3, RBC 4.46, Hgb 12.1, Hct 38.5, MCV 86.3, MCH 27.1, MCHC 31.4 L, RDW Std Deviation 41.8, RDW Coeff of Ela 13.2, Plt Count 372, MPV 9.0, Immature Gran % (Auto) 1.400 H, Neut % (Auto) 64.8, Lymph % (Auto) 23.9, Cole % (Auto) 8.9, Eos % (Auto) 0.3, Baso % (Auto) 0.7, Absolute Neuts (auto) 4.7, Absolute Lymphs (auto) 1.74, Nucleated RBC % 0 05/31/21 06:56: Sodium 138, Potassium 3.9, Chloride 106, Carbon Dioxide 28.0, Anion Gap 4 L, BUN 12, Creatinine 0.62, Estim Creat Clear Calc 80.20, Est GFR (MDRD) Af Amer 124, Est GFR (MDRD) Non-Af 103, BUN/Creatinine Ratio 19.3, Glucose 91, Calcium 7.9 L Microbiology: Microbiology 05/26/21 21:39 Blood Culture (Wb) - Anticubital Left Blood Culture - Preliminary No growth in 48 hours. D/C Instructions Discharge Diet: Low fat / Low cholesterol Discharge Activity: Return to Normal Activity Weight Bearing Status: Weight bearing as tolerated Call your doctor if you observe: Fever of 101 or Higher, Shortness of breath, Dizziness, Swelling in the ankles, Chest pain and Increased palpitations (irregular heartbeat) Meaningful Use Info Meaningful Use Diagnoses (Choose all that apply): None applicable Discharge Plan Admission Admit Date/Time: 05/27/21 01:48 Primary Reason for Your Visit: acute hypoxic respiratory failure due to covid 19 infection. Attending Provider: Bridgette Babb Primary Care Provider: [place], [place] Consulting Providers: Parker West ; Theron Cho ; Arianne Singh INTAKE WORKER Instructions Patient Instructions: Coronavirus Disease 2019 (COVID-19): Caring for Yourself or Others Additional Instructions / Restrictions: use oxygen for shortness of breath as needed. To remain in quarantine until June 10, 2021 to complete 20-day course of chronic time since diagnosis. Discharge Orders/Prescriptions Prescriptions: New dexamethasone [Decadron] 6 mg tablet 6 mg PO DAILY Qty: 5 RF: 0 apixaban 2.5 mg tablet 2.5 mg PO BID Qty: 28 RF: 0 Continued levothyroxine 125 MCG tablet 125 mcg PO DAILY RF: 0 sertraline 50 MG tablet 75 mg PO DAILY RF: 0 bupropion HCl (smoking deter) 150 MG tablet extended release 12 hr 150 mg PO DAILY RF: 0 hydroxychloroquine [Plaquenil] 200 mg Tablet 200 mg PO BID RF: 0 ezetimibe [Zetia] 10 mg Tablet 10 mg PO QHS RF: 0 Referrals / Follow [facility] [[facility] Care Provider[facility] - Within 2 Weeks Disposition Disposition (needs filled in before D/C Order can be placed): Home, Self Care Charges/Coding Visit Charges Inpatient E&M: 56364 Disch Hosp
--- NOTE | 2021-06-05 16:36 | CASEMGMT ---
[facility] CM Discharge Follow-Up Phone Call. Lace: 12 Strata: 3 Discharge Date: 05/31/21 Adm Dx: COVID Attempted discharge f/u phone call. No answer. Non-identifying VM received. Non-descript VM left requesting return call if there are any questions or concerns. Phone number provided. Eden MONTEZ RN CM
== END 2021-05-31 17:08 | disposition home or self-care (01) | DRG 177 ==
LOC: ED 22:05 → MS3 05-27 04:57
PROVIDERS: Admitting Provider Hospitalist; Emergency Provider Student in an Organized Health Care Education/Training Program; Visit Provider Student in an Organized Health Care Education/Training Program
DX: U07.1 COVID-19 (principal); J12.82 Pneumonia due to coronavirus disease 2019; J80 Acute respiratory distress syndrome; E03.9 Hypothyroidism, unspecified; E78.5 Hyperlipidemia, unspecified; E87.6 Hypokalemia; M06.9 Rheumatoid arthritis, unspecified; F32.9 Major depressive disorder, single episode, unspecified; F41.9 Anxiety disorder, unspecified; R94.5 Abnormal results of liver function studies; E66.9 Obesity, unspecified; Z68.31 Body mass index [BMI] 31.0-31.9, adult; Z79.01 Long term (current) use of anticoagulants; Z79.890 Hormone replacement therapy; Z99.81 Dependence on supplemental oxygen; Z79.899 Other long term (current) drug therapy; Z87.891 Personal history of nicotine dependence
CPT/HCPCS: 36415; 71045; 71275; 80048; 80053; 80076; 83605; 84145; 85025; 85379; 87040; 93005; 94762; 97162; 97166; 97802; 99284; J7030; J7040; J7050; Q9967; A4216; J1940; J2405

== ENCOUNTER 2021-06-19 16:58 | Emergency (ER) | payer OTHER, SELFPAY ==
[2021-06-19 16:59] VITALS: BP 120/66; PULSE 85; RESP 18; TEMP 36.4; O2SAT 92; BMI 30.9
--- NOTE | 2021-06-19 17:37 | ED.VIS.CHEST ---
HPI History of Present Illness Chief Complaint: Chest Pain Informant: patient Onset/Context/Timing Onset: Yesterday Activity at onset: gradual Timing: Intermittent and Lasts (Approximately 30 minutes) Quality: Positive for Stabbing Location: Left Chest Worsened By: Exertion Relieved By: Rest Associated Symptoms: Positive for Nausea, Dyspnea, Cough and Acid Reflux; Negative for Vomiting, Diaphoresis, Fever, Lightheadedness and Palpitations Narrative Narrative: Patient presents with chest pain that has been intermittent since yesterday. Patient states that when it comes on it goes into the left side of her neck and down her left arm. Patient states it is over the left side of her chest. Patient states it is worse with exertion and better with rest. Patient admits to some nausea but denies any vomiting. Patient admits to some shortness of breath with the pain. Patient denies any fevers or chills. Patient admits to a cough. Patient denies any diaphoresis. CVD Risk Factors: Positive for Hypercholesterolemia; Negative for Hypertension, Diabetes, Family History 1' </=55 and Smoking PE Risk Factors: Negative for Recent Travel/Surgery, Recent Immobilization, Prior DVT or PE, Cancer and OCP + Smoking + >/=35 PFSH [facility] Medical History Acute respiratory distress syndrome (ARDS) due to severe acute respiratory syndrome coronavirus 2 (SARS-CoV-2) Cervical vertebral fusion Depression Hypothyroid Respiratory failure Home Medications bupropion HCl (smoking deter) 150 mg PO DAILY 10/03/19 [History Last Taken Unknown] levothyroxine 125 mcg PO DAILY 10/03/19 [History Last Taken Unknown] sertraline 75 mg PO DAILY 10/03/19 [History Last Taken Unknown] ezetimibe [Zetia] 10 mg PO QHS 05/27/21 [History Last Taken Unknown] hydroxychloroquine [Plaquenil] 200 mg PO BID 05/27/21 [History Last Taken Unknown] Allergy/AdvReac Type Severity Reaction Status Date / Time No Known Allergies Allergy Verified 06/19/21 17:01 Family History Other Cancer Diabetes Heart disease Surgical History History of lung biopsy Previous section Social History Smoking Status: Former smoker ROS ROS ED Constitutional Constitutional ED: Denies chills or fever(s) Eyes Eyes: Denies blurry vision or change in vision ENT ENT ED: Reports sore throat; Denies rhinorrhea Cardiovascular Cardiovascular: Reports chest pain; Denies palpitations Respiratory/Chest Respiratory/Chest: Reports cough and dyspnea Gastrointestinal Gastrointestinal: Reports diarrhea and nausea; Denies abdominal pain or vomiting Genitourinary Genitourinary ED: Denies dysuria or hematuria Musculoskeletal Musculoskeletal: Reports neck pain; Denies back pain Integumentary Denies abscess or rash Neurologic Neurologic: Reports headache(s); Denies weakness Allergic/Immunologic Allergic/Immunologic ED: Denies mouth swelling or urticaria EXAM Physical Exam Const Vital Signs: 06/19/21 16:59 06/19/21 18:32 06/19/21 18:33 Temperature 97.6 F L Temperature Source Temporal Pulse Rate 85 Respiratory Rate 18 Respiratory Effort Normal Non-Labored Blood Pressure 120/66 Blood Pressure Mean 84 Pulse Ox 92 100 Oxygen Delivery Method Nasal Cannula Nasal Cannula Oxygen Flow Rate (L/min) 3 3 06/19/21 20:23 06/19/21 20:25 06/19/21 22:18 Temperature Temperature Source Pulse Rate 81 71 Respiratory Rate 16 19 H Respiratory Effort Blood Pressure 113/93 H 109/62 Blood Pressure Mean 99 77 Pulse Ox 97 97 99 Oxygen Delivery Method Room Air Room Air Oxygen Flow Rate (L/min) Positive well nourished and well developed General Appearance ED: well developed HEENT normocephalic and atraumatic Eyes PERRL and EOMs intact bilaterally Neck supple and no JVD Chest Wall palpation of chest normal Resp normal respiratory effort and clear to auscultation bilaterally Effort and Inspection: Negative for respiratory distress Cardio regular rate, regular rhythm and no murmurs GI normal to inspection, nondistended, normoactive bowel sounds, soft to palpation, non-tender and non-distended Extremity normal to inspection General Extremety ED: Negative for edema or tenderness General Extremity: Negative for edema Neuro oriented x3, CN's II-XII intact bilaterally and no sensory deficits noted Sensorium / Orientation: awake and alert Motor Exam: strength 5/5 throughout Psych mental status grossly normal Heart Score History: Moderately Suspicious ECG: Normal Age: >45 - <65 years Risk Factors: 1 or 2 Risk Factors Troponin: </= Normal Limit Score: 3 MDM MDM MDM Narrative Medical decision making narrative: EKG was obtained. On my interpretation, it showed a normal sinus rhythm with a rate of 77. DE interval, QRS interval, and QTc intervals were all normal. [place] was normal. There are no acute ST or T wave changes. Portable 1 view chest x-ray was obtained. On my interpretation, lung whitman are clear. There is normal cardiac silhouette. Bony thorax is normal. There is no acute process noted. Radiologist also interpreted the x-ray and agrees. CBC and basic metabolic profile were obtained and were within normal limits. High-sensitivity troponin was normal. 2-hour repeat high-sensitivity troponin was normal. Patient was advised of her findings. Patient has a HEART score of three. Patient was advised that this is low risk for acute cardiac event. Patient was instructed to follow-up with her primary care physician in 5 to 7 days. Patient understood and was agreeable with the plan. All questions were answered. Lab Data Attestation: I reviewed the patient's lab results. Labs: Laboratory Results - last 24 hr 06/19/21 06/19/21 06/19/21 19:41 19:41 21:48 WBC 8.0 RBC 4.27 Hgb 11.9 L Hct 37.3 MCV 87.4 MCH 27.9 MCHC 31.9 L RDW Std Deviation 43.9 RDW Coeff of Ela 13.8 Plt Count 243 MPV 9.0 Immature Gran % (Auto) 0.500 Neut % (Auto) 56.8 Lymph % (Auto) 28.2 [place] % (Auto) 10.2 H Eos % (Auto) 3.1 Baso % (Auto) 1.2 H Absolute Neuts (auto) 4.6 Absolute Lymphs (auto) 2.26 Nucleated RBC % 0 Sodium 142 Potassium 3.6 Chloride 106 Carbon Dioxide 30.0 Anion Gap 6 BUN 13 Creatinine 0.89 Estim Creat Clear Calc 55.87 Est GFR (MDRD) Af Amer 83 Est GFR (MDRD) Non-Af 68 BUN/Creatinine Ratio 14.6 Glucose 93 Calcium 9.1 Troponin I High Sens 5 5 Radiography Chest X-Ray - ED: 1 View, Read by ED Physician, Read by Radiologist and Normal Diagnostic Testing: Radiology Impression Chest X-Ray 06/19/21 19:32 IMPRESSION: Normal x-ray examination of the chest. Electronically Signed: Marc Rousseau MD at 20:42 EDT Tel , Service support , EKG Initial EKG: Attestation: I personally reviewed and interpreted this EKG as follows: Interpretation: Sinus Rhythm (77) and No Acute Injury Pattern Prior EKG tracings: available for review Prior: Unchanged (05/26/2021) Discharge Plan Triage Chief Complaint: Chest Pain ED Provider: Wan Galvin Dx/Rx/DC Orders Clinical Impression: Chest pain Instructions: ED Chest Pain, Uncertain Cause Prescriptions: No Action levothyroxine 125 MCG tablet 125 mcg PO DAILY RF: 0 sertraline 50 MG tablet 75 mg PO DAILY RF: 0 bupropion HCl (smoking deter) 150 MG tablet extended release 12 hr 150 mg PO DAILY RF: 0 hydroxychloroquine [Plaquenil] 200 mg Tablet 200 mg PO BID RF: 0 ezetimibe [Zetia] 10 mg Tablet 10 mg PO QHS RF: 0 [facility] [Primary [facility] Provider] - 5-7 Days Disposition Disposition: Home, Self Care
[2021-06-19 18:32] VITALS: O2SAT 100
--- NOTE | 2021-06-19 19:32 | RAD_ITS ---
STUDY: X-RAY CHEST REASON FOR EXAM: Female, 61 years old. Intermittent chest pain. Recent covid diagnosis. TECHNIQUE: Single frontal view of the chest. COMPARISON: 05/26/21. FINDINGS: The lungs are clear and expanded. There is no demonstrated pleural abnormality. Normal size heart. Normal mediastinum and ana. Normal visualized pulmonary arteries. Normal visualized aortic arch and descending thoracic aorta. Normal visualized thoracic spine. Normal visualized ribs, clavicles, and shoulders. There is no demonstrated abnormality of the visualized soft tissue structures of the upper abdomen. RAD/Chest 1 View (Portable) IMPRESSION: Normal x-ray examination of the chest. Electronically Signed: Marc Rousseau MD at 20:42 EDT Tel , Service support ,
--- NOTE | 2021-06-19 19:32 | EKG12_ITS ---
Test Reason : CP Blood Pressure : / mmHG Vent. Rate : 077 BPM Atrial Rate : 077 BPM P-R Int : 152 ms QRS Dur : 086 ms QT Int : 408 ms P-R-T Axes : 045 058 062 degrees QTc Int : 461 ms Normal sinus rhythm Normal ECG Confirmed by KELLY LUDWIG, JOSE A ([id number]), editor trade journal JOSEPH QUINN ([id number]) on 06/24/2021 7:46:26 AM Referred By: SUHA Confirmed By:JOSE A MENDOZA MD
[2021-06-19 19:59] LABS: Absolute Lymphocyte Count 2.26 X10^3/uL (0.83-4.51); Absolute Neutrophil Count 4.6 X10^3/uL (2.0-7.7); Basophil% 1.2 % (0-1); Eosinophil# 0.25 X10^3/uL; Eosinophils% 3.1 % (0-5); Hematocrit 37.3 % (37-47); Hemoglobin 11.9 g/dL (12.0-15.0); Lymphocyte # 2.26 X10^3/ul (0.83-4.51); Lymphocyte % 28.2 % (19-41); Mean Corp Hgb Conc 31.9 g/dL (32-36); Mean Corpuscular Hgb 27.9 pg (27.0-32.0); Mean Corpuscular Volume 87.4 fL (81-99); Monocyte# 0.82 X10^3/uL; Monocyte% 10.2 % (0-10); NRBC Flagged by Analyzer 0 % (0-5); Neutrophil # 4.55 X10^3/uL (2.7-7.7); Neutrophil % 56.8 % (47-70); Platelet Count 243 K/mm3 (150-450); RBC Distribution Width CV 13.8 % (11.6-14.6); RBC Distribution Width SD 43.9 fl (35.1-43.9); Red Blood Count 4.27 M/mm3 (4.2-5.4)
[2021-06-19 20:21] LABS: Anion Gap 6 (5-15); BUN 13 mg/dL (7-18); BUN/Creat Ratio 14.6 RATIO (10-20); Calcium,Total 9.1 mg/dL (8.5-10.1); Chloride 106 mmol/L (98-107); Creatinine, Serum 0.89 mg/dL (0.55-1.02); EST Glomerular Filtration Rate 68 mL/min (>60); Est Glom Filt Rate - Afr Amer 83 mL/min (>60); Estimated Creatinine Clearance 55.87 ml/min; Glucose 93 mg/dL (74-106); Potassium 3.6 mmol/L (3.5-5.1); Sodium Level 142 mmol/L (136-145); Troponin-I HS 5 pg/mL (3.0-54.0)
[2021-06-19] MEDS: Aspirin 81 MG TAB.CHEW 324 MG PO (20:22)
[2021-06-19 20:23] VITALS: O2SAT 97
[2021-06-19 20:25] VITALS: BP 113/93; PULSE 81; RESP 16; O2SAT 97
[2021-06-19 22:13] LABS: Troponin-I HS 5 pg/mL (3.0-54.0)
[2021-06-19 22:18] VITALS: BP 109/62; PULSE 71; RESP 19; O2SAT 99
[2021-06-20 00:03] VITALS: PULSE 72; O2SAT 97
== END 2021-06-20 00:14 | disposition home or self-care (01) ==
PROVIDERS: Emergency Provider Emergency Medicine
DX: R07.9 Chest pain, unspecified (principal); F32.9 Major depressive disorder, single episode, unspecified; E03.9 Hypothyroidism, unspecified; Z87.891 Personal history of nicotine dependence; Z86.16 Personal history of COVID-19; Z79.899 Other long term (current) drug therapy
CPT/HCPCS: 71045; 80048; 84484; 85025; 93005; 99284; A4216

== ENCOUNTER 2022-11-14 06:38 | Emergency (ER) | payer OTHER, SELFPAY ==
[2022-11-14 06:39] VITALS: BP 169/77; PULSE 73; RESP 18; TEMP 36.6; O2SAT 98; BMI 32.0
[2022-11-14] MEDS: HYDROmorphone 1 MG/ML Syringe IV (06:51)
[2022-11-14] MEDS: Ondansetron 4 MG/2 ML Vial IV (06:51)
[2022-11-14] MEDS: 0.9% Normal Saline 1,000 ML 999 ML IV (06:53)
--- NOTE | 2022-11-14 06:54 | EDS_ITS ---
HPI History of Present Illness Chief Complaint: Abd Pain Narrative Narrative: Patient is a 62-year-old female who had an outpatient abdominal ultrasound on October 30, 2022. At that time it showed several mobile calculi within a nondistended gallbladder with the largest measuring up to 2 cm with no surrounding thickening or fluid to suggest acute infection. Patient states that she had some pie last night and then went to bed. She states she awoke around 5 AM to urinate and after laying back down in bed developed a right upper quadrant abdominal pain. She states the pain has been slowly progressing over the past 2 hours. She states it is mainly in the right upper abdomen and midepigastric region. She states the pain is making her nauseous but she denies any vomiting. Patient denies any fevers or chills or dysuria. She has concerned that she is having a gallbladder attack and with this comes in for evaluation [facility] Medical History Acute respiratory distress syndrome (ARDS) due to severe acute respiratory syndrome coronavirus 2 (SARS-CoV-2) Cervical vertebral fusion Depression Hypothyroid Respiratory failure Home Medications bupropion HCl (smoking deter) 150 mg tablet,12 hr sustained-release(smoking deterrent) 150 mg PO DAILY anx/dep 10/03/19 [History Last Taken Unknown] levothyroxine 125 mcg tablet 125 mcg PO DAILY hypothyroid 10/03/19 [History Last Taken Unknown] sertraline 50 mg tablet 75 mg PO DAILY depression 10/03/19 [History Last Taken Unknown] ezetimibe 10 mg tablet (Zetia) 10 mg PO QHS cholesterol 05/27/21 [History Last Taken Unknown] hydroxychloroquine 200 mg tablet (Plaquenil) 200 mg PO BID RA 05/27/21 [History Last Taken Unknown] Allergy/AdvReac Type Severity Reaction Status Date / Time hydrocortisone [From Pheyo] AdvReac Other Verified 11/14/22 06:44 ketoconazole [From Pheyo] AdvReac Other Verified 11/14/22 06:44 Family History Other Cancer Diabetes Heart disease Surgical History History of lung biopsy Previous section Social History Smoking Status: Former smoker ROS ROS ED Constitutional Constitutional ED: Denies chills or fever(s) ENT ENT ED: Denies sore throat Cardiovascular Cardiovascular: Denies chest pain Respiratory/Chest Respiratory/Chest: Denies cough or dyspnea Gastrointestinal Gastrointestinal: Reports abdominal pain and nausea; Denies diarrhea or vomiting Genitourinary Genitourinary ED: Denies dysuria or hematuria Musculoskeletal Musculoskeletal: Denies back pain or myalgias Integumentary Denies rash Neurologic Neurologic: Denies headache(s) Hematologic/Lymphatic Hematologic/Lymphatic: Denies easy bleeding or easy bruising EXAM Physical Exam Const Vital Signs: 11/14/22 06:39 Temperature 97.9 F Temperature Source Temporal Pulse Rate 73 Respiratory Rate 18 Blood Pressure 169/77 H Blood Pressure Mean 107 Pulse Ox 98 Oxygen Delivery Method Room Air Positive well nourished and well developed General Appearance ED: well developed HEENT Reports moist mucous membranes Eyes PERRL and EOMs intact bilaterally General Eye ED: Negative for scleral icterus Neck supple Resp normal respiratory effort and clear to auscultation bilaterally Cardio regular rate and regular rhythm Rate: other Other Details: Radial pulses are plus 2 out of 4 bilaterally are equal and symmetric GI non-distended GI Narrative: Abdomen is soft and nondistended with normal active bowel sounds. Patient has pain with palpation in the midepigastric and right upper quadrant region. Negative Morgan sign. No voluntary guarding or rigidity. No pulsatile mass or fluid wave Auscultation: normoactive bowel sounds Palpation: soft Back/Spine no CVA tenderness Extremity normal to inspection Neuro oriented x3 and CN's II-XII intact bilaterally Sensorium / Orientation: alert Psych mental status grossly normal Skin no rashes or lesions noted General Skin Exam: Negative for jaundice MDM MDM MDM Narrative Medical decision making narrative: Patient presented to the ER mildly hypertensive otherwise with stable vitals. She had an outpatient ultrasound on October 30 indicating she has multiple gallbladder stones and she has pain in the midepigastric and right upper quadrant regions which are concerning for biliary colic. At this time she is afebrile and had the recent ultrasound I do not feel there is need for repeat ultrasound. However with concern she could be developing gallstone pancreatitis or possibly acute cholecystitis I will repeat laboratory studies and provide pain control. I feel that if labs do not show any acute changes and symptoms have improved with medication the patient will most likely be able to follow on an outpatient basis but if liver enzymes are elevated or lipase she may need repeat imaging and/or possible surgical consultation. Patient will be signed out to Dr. Martin pending laboratory results Discharge Plan Triage Chief Complaint: Abd Pain ED Provider: Xiang Engle Dx/Rx/DC Orders Clinical Impression: Biliary colic, Gallstones Prescriptions: No Action levothyroxine 125 MCG tablet 125 mcg PO DAILY sertraline 50 MG tablet 75 mg PO DAILY bupropion HCl (smoking deter) 150 MG tablet extended release 12 hr 150 mg PO DAILY hydroxychloroquine [Plaquenil] 200 mg Tablet 200 mg PO BID ezetimibe [Zetia] 10 mg Tablet 10 mg PO QHS [facility] Provider: [facility] Referrals: [facility] [Primary Care Provider] -
[2022-11-14 06:56] LABS: Absolute Lymphocyte Count 2.53 X10^3/uL (0.83-4.51); Absolute Neutrophil Count 3.7 X10^3/uL (2.0-7.7); Basophil# 0.14 X10^3/uL; Eosinophil# 0.16 X10^3/uL; Eosinophils% 2.3 % (0-5); Hemoglobin 13.4 g/dL (12.0-15.0); Lymphocyte # 2.53 X10^3/ul (0.83-4.51); Lymphocyte % 35.9 % (19-41); Mean Corp Hgb Conc 31.9 g/dL (32-36); Mean Corpuscular Hgb 27.6 pg (27.0-32.0); Mean Corpuscular Volume 86.4 fL (81-99); Mean Platelet Vol. 8.6 fl (6.2-12.0); Monocyte# 0.53 X10^3/uL; Monocyte% 7.5 % (0-10); NRBC Flagged by Analyzer 0 % (0-5); Neutrophil # 3.66 X10^3/uL (2.7-7.7); Platelet Count 312 K/mm3 (150-450); RBC Distribution Width CV 13.2 % (11.6-14.6); RBC Distribution Width SD 41.1 fl (35.1-43.9); Red Blood Count 4.86 M/mm3 (4.2-5.4)
[2022-11-14 07:18] LABS: AST(SGOT) 16 U/L (15-37); Alanine Aminotransfer ALT/SGPT 44 U/L (13-56); Albumin, Serum 3.8 g/dL (3.2-5.0); Alkaline Phosphatase 96 U/L (45-117); Anion Gap 8 (5-15); BUN 14 mg/dL (7-18); BUN/Creat Ratio 12.6 RATIO (10-20); Chloride 106 mmol/L (98-107); Creatinine, Serum 1.11 mg/dL (0.55-1.02); EST Glomerular Filtration Rate 53 mL/min (>60); Est Glom Filt Rate - Afr Amer 64 mL/min (>60); Estimated Creatinine Clearance 44.21 ml/min; Globulin 3.4 g/dL (2.2-4.2); Glucose 105 mg/dL (74-106); Lipase 155 U/L (73-393); Potassium 3.7 mmol/L (3.5-5.1); Protein, Total 7.2 g/dL (6.4-8.2); Sodium Level 143 mmol/L (136-145)
[2022-11-14 07:54] LABS: Bacteria 0 SEEN /hpf (None Seen); Mucous, Urine 0 SEEN /hpf (<or=2+); Squamous Epithelial Cells - UA 0 SEEN /hpf (5-10); White Blood Cells 0 SEEN /hpf (0-5)
[2022-11-14 07:58] LABS: Color, Urine Yellow (Yellow); Glucose, Dipstick Normal (Normal); Ketone-Dipstick Negative (Negative); Leukocyte Esterase-Dipstick 25 /ul (Negative); Nitrite-Dipstick Negative (Negative); Occult Blood-Urine 150 /ul (Negative); Protein-Dipstick Negative (Negative); Specific Gravity, Urine 1.005 (1.002-1.030); Urine Bilirubin Dipstick Negative (Negative); Urine Clarity Clear (Clear); Urine Urobilinogen Normal (Normal)
--- NOTE | 2022-11-14 08:05 | CT_ITS ---
STUDY: CT ABDOMEN AND PELVIS WITHOUT CONTRAST REASON FOR EXAM: Female, 62 years old. Right flank pain RADIATION DOSAGE (If Supplied By Facility): CTDIvol = ( 10.61 ) mGy, DLP = ( 533.00 ) mGycm TECHNIQUE: Transaxial images were obtained from the dome of the diaphragm to the symphysis pubis without oral contrast, and without intravenous contrast. Sagittal and coronal images were reconstructed. Individualized dose optimization techniques were used for this CT. COMPARISON: None. FINDINGS: Mild increased linear markings at the right lung base with the focal pleural calcific plaques. This is suggestive of scarring. Coronary artery calcification. Normal liver. Normal gallbladder and extrahepatic biliary system. There is a benign calcified granuloma of the spleen. Normal pancreas. Normal bilateral adrenal glands. There is mild degree of right hydronephrosis and proximal right hydroureter due to a 3.9 mm calculus in the proximal portion of the right ureter. Normal left kidney. There is a small hiatal hernia. Normal small intestine. Normal colon. The appendix is visualized and appears normal. There is scattered atherosclerotic calcification of the abdominal aorta, without a demonstrated aneurysm. Normal inferior vena cava. Normal retroperitoneum. Normal urinary bladder. Normal abdominal wall. Normal osseous structures. CT/Abdomen/Pelvis without Cont IMPRESSION: 3.9 mm calculus in the proximal portion of the right ureter causing a mild degree of right hydronephrosis and proximal right hydroureter. Findings suggestive of a mild scarring at the right lung base. Electronically Signed: Casimiro Ellington MD at 8:51 EST ,
[2022-11-14 08:09] LABS: Red Blood Cells-Urine 5-10 SEEN /hpf (0-5)
[2022-11-14] MEDS: Ketorolac 15 MG/ML Vial IV (08:13)
[2022-11-14] MEDS: oxyCODONE 5 MG Tablet PO (09:21)
[2022-11-14 09:27] VITALS: BP 144/73; PULSE 79; RESP 18; O2SAT 100
== END 2022-11-14 09:37 | disposition home or self-care (01) ==
PROVIDERS: Emergency Medicine; Emergency Provider Emergency Medicine; Visit Provider Emergency Medicine
DX: K80.70 Calculus of gallbladder and bile duct without cholecystitis without obstruction (principal); E03.9 Hypothyroidism, unspecified; Z79.899 Other long term (current) drug therapy; Z87.891 Personal history of nicotine dependence
CPT/HCPCS: 74176; 80048; 80076; 81001; 83690; 85025; 96361; 96374; 96375; 99284; J7030; A4216; J2405

== ENCOUNTER 2023-04-06 14:04 | Outpatient (CLI) | payer OTHER, SELFPAY ==
--- NOTE | 2023-04-06 14:13 | PCM.PR.HP ---
History of Present Illness General Arrival date:: 04/06/23 Arrival time:: 14:15 Date of Referral:: 03/19/23 Date of Evaluation: 04/06/23 Referring Physician: JAZMIN Daugherty Primary Diagnosis: COVID_19 [employer] History of Present Pulmonary Event mMRC Breathless Scale: When is the patient short of breath? Y/N Grade: Description of Breathlessness: 0 I only get breathless with strenuous exercise. 1 I get short of breath when hurrying on level ground or walking up a slight hill. y 2 On level ground, I walk slower than people of the same age because of breathless, or have to stop for breath when walking at my own pace. 3 I stop for breath after walking 100 yards or after a few minutes on level ground. 4 I am too breathless to leave the house or I am breathless when dressing. Respiratory Problems: Yes Fatigue, Able to Speak in Full Sentences and Dyspnea with Activity; No Limited Range of Motion, Chest Pain, Wheezing, Dizziness, Ankle Swelling, Hoarseness, Dyspnea at Rest or Cough with Secretions Medications Home Medications bupropion HCl (smoking deter) 150 mg tablet,12 hr sustained-release(smoking deterrent) 150 mg PO DAILY anx/dep 10/03/19 levothyroxine 125 mcg tablet 125 mcg PO DAILY hypothyroid 10/03/19 sertraline 50 mg tablet 75 mg PO DAILY depression 10/03/19 ezetimibe 10 mg tablet (Zetia) 10 mg PO QHS cholesterol 05/27/21 hydroxychloroquine 200 mg tablet (Plaquenil) 200 mg PO BID RA 05/27/21 ondansetron 4 mg disintegrating tablet 4 mg PO Q8H PRN PRN Nausea #14 tabs 11/14/22 oxycodone-acetaminophen 5 mg-325 mg tablet (Percocet) 1 tab PO Q6H PRN pain 5 days #20 tabs 11/14/22 tamsulosin 0.4 mg capsule (Flomax) 0.8 mg (2 x 0.4 mg) PO DAILY #7 caps 11/14/22 Allergies Allergies hydrocortisone [From Pheyo] Adverse Reaction (Verified 11/14/22 06:44) Other ketoconazole [From Pheyo] Adverse Reaction (Verified 11/14/22 06:44) Other Secretions Normal Color:: no productive cough Sleep Disorder Evaluation Hx of Sleep Apnea: Yes Do you snore loudly (louder than talking or can be heard through closed doors)?: Yes (Patient diagnosed with KYM and has home CPAP unit) Medical Utilization Medical Devices Do you use a peak flow meter at home?: No Do you use a spacer device with your inhalers?: No Medical Utilization Number of hospital visits in the last year?: 1 (05/26/2021 COVID-19) Number of emergency room visits in the last year?: 1 Do you see your physician on a regular schedule?: Yes How often?: 6 months and as needed Advanced Directives Advanced Directives Power of Program Director [employer]: No Living Will: No Advance Directives Information Provided: Yes Advance Directives on File: No DNR Order?:: No MOLST See MOLST form: No Past Medical History Covid-19 Screening Physicial Symptoms Fever: No Unexplained muscle aches: No Current respiratory symptoms: Yes (seasonal allergies) Upper respiratory infections symptoms: No Gastro-intestinal symptoms: No Dlk-Rlad-Gwnrdj symptoms: No Other Clinical Concerns Has tested positive for COVID-19 in last 30 days: No Date of testin04/06/23 (patient has been vaccinated) Exposure Risk Had contact w/person w/symptoms or Covid-19 (+) last 14 days: No Has High Risk Exposures ID'd by Health dept/Inf Control team: No Pertinent Comorbidities 65 years or older:: No Lives in Assisted Living facility:: No Has a chronic lung disease or moderate to severe asthma:: No Has a serious heart condition:: No Immunocompromised:: No Severely obese (Body Mass Index of 40 or higher):: No Diabetic:: No Has chronic kidney disease undergoing dialysis:: No Has liver disease:: No Medical History Past Medical History (Reviewed 04/06/23 @ 14:36 by Baldemar Mandujano, LEGAL OFFICE ADMINISTRATOR, CASTING AND CURING OPERATOR, BS) Acute respiratory distress syndrome (ARDS) due to severe acute respiratory syndrome coronavirus 2 (SARS-CoV-2) U07.1, J80 Cervical vertebral fusion M43.22 Depression F32.9 Hypothyroid E03.9 Respiratory failure J96.90 Surgical History Surgical History History of lung biopsy Previous section Significant Family History Family History Other Cancer Diabetes Heart disease Current/ Previous Services Pulmonary Rehab:: No Social History Smoking History Smoking Status: Former smoker Years Smokin Hx Tobacco Use: Yes Hx Smoking Exposure: Yes Alcohol Use Alcohol Usage: No Substance Abuse Hx Substance Use: No Occupation Occupation (List type of work in comments):: Employed (Self-employed [employer], 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.) Hobbies, Recreation, Social Activities Hobbies: Farm and Other (dogs and walking dogs.) Recreational Activities: I am able to engage in a few activities Functioning ADL/IADL Current Ability Current Ability: Independent: Self-Care (e.g.,grooming, dressing, & bathing), Independent: Ambulation, Independent: Transfer and Independent: Household tasks (e.g., light meal prep, laundry, shopping) Pt Functioning Prior to Problem Prior Functioning: Self-Care (e.g.,grooming, dressing, & bathing): Independent, Ambulation: Independent, Transfer: Independent and Household tasks (e.g., light meal prep, laundry, shopping): Independent Social Environment Status Marital Status: Current Living Arrangements Living Environment:: Family Children How many children do you have?: 1 Do any of your children live nearby?: Yes Safety Do you feel safe in your surroundings?: Yes Assistance Do you need any assistance at home?: no Review of Systems Pain Is Patient Pain Free?: No Pain Location: lower extremity (left foot from previous fracture and isn't as strong as should be.) Pain Level: 0/10 Risk Factor Assessment Diabetes Nutrition Referral for Diabetes: No Obesity Height: 5 ft 4 in Weight:: 185 lb Weight in Pounds: 185.0 lbs Weight Source: Estimated by Patient Body Mass Index (BMI): 31.7 Nutritional Referral for Obesity: Yes Physical Activity Physical Inactivity: Physically demanding job (farm chores, 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.) Risk Stratification Risk Guidelines: Lowest Risk: Risk Factor for Smoking, Risk Factor for Dyslipidemia, Risk Factor for Diabetes, Risk Factor for Hypertension and Risk Factor for Sedentary Lifestyle For Smoking Smoking Risk Guidelines For Dyslipidemia Dyslipidemia Risk Guidelines For Diabetes Mellitus Diabetes Risk Guidelines For Obesity/Overweight Obesity/Overweight Risk Guidelines For Hypertension Hypertension Risk Guidelines For Sedentary Lifestyle Sedentary Lifestyle Risk Guidelines For Depression Depression Risk Guidelines Motivation Motivation to Participate On a scale of 1 to 10, how prepared are you to commit to attending program?: 10 What do you see as barriers to successfully being able to complete the program?: left foot from previous injury (walking long distances) What do you see as the benefits of succesfully completing the program? In other words, what do you hope to get out of participating in the program?: able to do more, more work, Are there issues you are dealing with that will interfere with completing the program?: no Do you have a spouse or signficant other, family or friends who will help support you to complete the program?: yes Diagnostic Data Review Pulmonary Function Test FEV1:: 2.49 FVC:: 2.92 FEV1/FVC%:: 95
--- NOTE | 2023-04-06 14:14 | PR.OPITP_ITS ---
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 Learning Style/Barriers Personal Learning Style:: Audio/Visual and Written Barriers to Learning: Vision impaired and Hearing impaired Educational Classes IN: Breathing Retraining: Initial Assessment and Energy Conservation: Initial Assessment Education/Goals IN Patient Goals: Increase muscle strength: Initial Assessment, Experience less dyspnea: Initial Assessment, Improve energy level: Initial Assessment, Participate in home exercise: Initial Assessment, Improve the ability to cope wi th ADLs: Initial Assessment, Improve diet and nutrition: Initial Assessment, Improve my quality of life: Initial Assessment and Reduce Stress/relaxation techniques: Initial Assessment Exercise - Initial Assessment Visit Date of Eval: 04/06/23 Session Number:: 0 Problem/Goals Problems: Deconditioning and No regular exercise Goals:: Aerobic exercise 30-60 mins x 12 weeks [36 sessions] Physician Prescribed Exercise Modalities: Treadmill, Airdyne and NuStep Frequency (days/week): 3 Duration (Minutes):: 30-45 Intensity: 60-80% of age predicted maximum heart rate reserve Target HR:: 109 Resting Blood Pressure: 98/55 Plan Plan and Plan to Review:: Benefits of exercise, Core components of exercise, How to measure dyspnea level, How to monitor dyspnea level, Exercise intensity, Exercise safety guideline, Home exercise guidelines and Zahida: 3-4/11-13 Home Exercise Mode: Other (Patient has bike at home she plans to ride) Exercise - 30-Day Assessment Visit Date of Eval: 04/06/23 Session Number:: 0 Physician Prescribed Exercise Target HR:: 109 Resting Blood Pressure: 98/55 Exercise - 60-Day Assessment Visit Date of Eval: 04/06/23 Session Number:: 0 Physician Prescribed Exercise Target HR:: 109 Resting Blood Pressure: 98/55 Exercise - 90-Day Assessment Visit Date of Eval: 04/06/23 Session Number:: 0 Physician Prescribed Exercise Target HR:: 109 Resting Blood Pressure: 98/55 Exercise - Final Assessment Visit Session Number:: 0 Physician Prescribed Exercise Modalities: Treadmill, Airdyne and NuStep Resting Blood Pressure: 98/55 Nutrition/Wt Mgmt - Initial Visit Date of Eval: 04/06/23 Session Number:: 0 Intervention Intervention/Plan: Instruct on ideal BMI & set weight loss goal w/patient Nutrition/Wt Mgmt - 30-Day Visit Session Number:: 0 Nutrition/Wt Mgmt - 60-Day Visit Session Number:: 0 Nutrition/Wt Mgmt - 90-Day Visit Session Number:: 0 Nutrition/Wt Mgmt - Final Visit Session Number:: 0 Psychosocial - Initial Assess Visit Date of Eval: 04/06/23 Session Number:: 0 Psychosocial Test Tool Used:: Pulmonary QOL and PHQ-9 Questionnaire Referral to Behavioral Health PS - Interventions: Yes: Attend Stress Management Classes Intervention/Plan: See List Interventions/Plan:: Assess stressors,coping strategies & signs of derpression on admission, Instruct/assist pt to develop coping & personal stress Mgt strategies, Instruct patient to recognize signs & symptoms of depression and Instruct patient to recog Psychosocial - 30-Day Visit Session Number:: 0 Psychosocial Test Tool Used:: Pulmonary QOL and PHQ-9 Questionnaire Referral to Behavioral Health PS - Interventions: Yes: Attend Stress Management Classes Plan Interventions/Plan:: Assess stressors,coping strategies & signs of derpression on admission, Instruct/assist pt to develop coping & personal stress Mgt strategies, Instruct patient to recognize signs & symptoms of depression and Instruct patient to recog Psychosocial - 60-Day Visit Session Number:: 0 Psychosocial Test Tool Used:: Pulmonary QOL and PHQ-9 Questionnaire Referral to Behavioral Health PS - Interventions: Yes: Attend Stress Management Classes Plan Interventions/Plan:: Assess stressors,coping strategies & signs of derpression on admission, Instruct/assist pt to develop coping & personal stress Mgt strategies, Instruct patient to recognize signs & symptoms of depression and Instruct patient to recog Psychosocial - 90-Day Visit Session Number:: 0 Psychosocial Test Tool Used:: Pulmonary QOL and PHQ-9 Questionnaire Referral to Behavioral Health PS - Interventions: Yes: Attend Stress Management Classes Plan Interventions/Plan:: Assess stressors,coping strategies & signs of derpression on admission, Instruct/assist pt to develop coping & personal stress Mgt strategies, Instruct patient to recognize signs & symptoms of depression and Instruct patient to recog Psychosocial - Final Assess Visit Session Number:: 0 Psychosocial Test Tool Used:: Pulmonary QOL and PHQ-9 Questionnaire Referral to Behavioral Health PS - Interventions: Yes: Attend Stress Management Classes Plan Interventions/Plan:: Assess stressors,coping strategies & signs of derpression on admission, Instruct/assist pt to develop coping & personal stress Mgt strategies, Instruct patient to recognize signs & symptoms of depression and Instruct patient to recog Oxygen & Oxygen Titration Init Visit Date of Eval: 04/06/23 Session Number:: 0 Initial Assessment Patient Reports:: No cough Oxygen & Oxygen Titration 30D Visit Session Number:: 0 Oxygen & Oxygen Titration 60D Visit Session Number:: 0 Oxygen & Oxygen Titration 90D Visit Session Number:: 0 Oxygen & Oxygen Titration NE Visit Session Number:: 0 Core Components - Initial Visit Date of Rei: 04/06/23 Session Number:: 0 Hypertension BP: 98/55 [employer] [employer] Hypertension Guidelines Tobacco - Initial Assessment Tobacco Program Goals Stages of Change:: Action (quit smoking > 30 years ago) Exacerbation Mgmt & Airway Clearance Problems:: No home O2 Patient Reports:: No cough Medication Medication Goals: Adherence to prescribed medications Diabetes Diabetes:: No Core Components - 30 DAYS Visit Session Number:: 0 Hypertension Resting Blood Pressure:: 98/55 [employer] [employer] Hypertension Guidelines Tobacco - 30-Day Tobacco Program Goals Stages of Change:: Action (quit smoking > 30 years ago) Diabetes Diabetes:: No Core Components - 60 DAYS Visit Session Number:: 0 Hypertension Resting Blood Pressure:: 98/55 [employer] [employer] Hypertension Guidelines Tobacco - 60-Day Tobacco Program Goals Stages of Change:: Action (quit smoking > 30 years ago) Diabetes Diabetes:: No Core Components - 90 DAYS Visit Session Number:: 0 Hypertension Resting Blood Pressure:: 98/55 [employer] [employer] Hypertension Guidelines Tobacco - 90-Day Tobacco Program Goals Stages of Change:: Action (quit smoking > 30 years ago) Diabetes Diabetes:: No Core Components - Final Visit Session Number:: 0 Hypertension Resting Blood Pressure:: 98/55 [employer] [employer] Hypertension Guidelines Tobacco - Final Tobacco Program Goals Stages of Change:: Action (quit smoking > 30 years ago) Diabetes Diabetes:: No Patient Health Questionnaire PHQ-9 Screening Initial Assessment: 1. Little interest or pleasure in doing things: Not at all 2. Feeling down, depressed, or hopeless: Several days 3. Trouble falling or staying asleep, or sleeping too much: Nearly every day 4. Feeling tired or having little energy: Not at all 5. Poor appetite or overeating: Several days 6. Feeling bad about yourself -- or that you are a failure or have let yourself or your family down: Several days 7. Trouble concentrating on things, such as reading the newspaper or watching television: Several days 9. Thoughts that you would be better off , or of hurting yourself in some way: Not at all How difficult have these problems made it for you to do your work, take care of things at home, or get along with other people?: Not difficult at all Total Score: 7 Knowledge Questionaire (BCKQ) Information Information: [place] COPD Knowledge Questionnaire (BCKQ) This questionnaire is designed to find out what you know about your lung problem. It should be completed without help form anyone else. This usually takes between 10 and 20 minutes. Your answers will help us to find out what information you need to help you to understand and manage your lung condition. [place] the [place] which you think is the correct answer. Questions 1. In COPD: b. COPD can only be confirmed by breathing tests: False c. In COPD ther is usually gradual worsening over time: True d. In COPD oxygen levels in the blood are always low: False e. COPD is usually in people less than 40 years old: False 2. COPD: [place] than 80% of COPD cases are caused by cigarette smoking: True b. COPD can be caused by occupational dust exposure: True c. Longstanding asthma can develop into COPD: True d. COPD is commonly an inherited disease: False e. Women are less vunerable to the effects of cigarette than men: False 3. The following symptoms are Common in COPD: a. Swelling of the ankles is common in COPD:: Don't know b. Fatigue [tiredness] is common in COPD: True c. Wheezing is common in COPD: Don't know d. Crushing chest pain is common in COPD: True e. Rapid weight loss is common in COPD: True 4. Breathlessness in COPD: a. Severe breathlessness prevents travel by air: True b. Breathlessness can be worsened by eating large meals: True c. Breathlessness means that your oxygen levels are low: True d. Breathlessness is a normal response to exercise: True e. Breathlessness is primarily caused by a narrowing of the bronchial tubes: True 5. Phlegm (sputum): a. Coughing phlegm is a common symptom in COPD: True b. Clearing phlegm is more difficult if you get dehydrated: True c. Bronchodilator inhalers can help clear phlegm: True d. Phlegm causes harm if swallowed: True e. Clearing phlegm can be assisted by breathing exercises: True 6. Chest infections / exacerbations: a. Chest infections often cause coughing of blood: True b. Chest infection phlegm usually becomes coloured (ylw/grn): True cExerbations (episodes of worsening) can occur in the absence of chest infection: True d. Chest infections are always accompanied by a high temperature: True e. Steroid tablets should be taken whenever there is an exacerbation: False 7. Excercise in COPD: aWalking excercises better than breathing to improve fitness: False b. Exercise should be avoided as it strains the lungs: True c. Exercise can help maintain your bone density: True d. Exercise helps relieve depression: True e. Exercise should be stopped if it makes you breathless: True 8. Smoking: a. Stopping smoking will reduce the risk of heart disease: True b. Stopping smoking will slow down further lung damage: True c. Stopping smoking is pointless as the damage is done: False d.Stopping smoking usually results in improved lung function: True eNicotine replacement therapy only available on prescription: True 9. Vaccination: a. A flu jab is recommended every year: True b. You can get flu from having a flu jab: Don't know c. You can only have a flu jab if you are 65 or over: False d. A pneumonia jab protects against all forms of pneumonia: False e.You can have a pneumonia jab and a flu job on the same day: True 10. Inhaled bronchodilators: a. Bronchodilators act quickly (within 10 minutes): True b. Both short & long acting bronchodilators can be taken on the same day: True c. Spacers (volumatic,nebuhaler,serochamber)should be dried w/atowel after washing: True d. A spacer device increases the medication to the lungs: True e. Tremor may be a side effect of bronchodilators: True 11. Antibiotic treatment in COPD: a. To be effective, the course should last at least 10 days: False b. Excessive use of antibiotics can cause resistant bacteria (germs): False d. Antibiotic treatment is necessary for an exacerbation (worsening) however mild: True e. Seek advice if antibiotics cause severe diarrhoea: True 12. Steroid tablets given for COPD (eg Prednisolone): a. Steroid tablets help strengthen muscles: True b. Steroid tablets should be avoided if there is a chest infection: True c. The risk of long-term side effects due to steroids is less w/short courses then w/continous treatment: False e. Steroid tablets can increase your appetite: True 13. Inhaled steroids (brown, red or orange): a. Inhaled steroids should be stopped if you are given steroid tablets: True bSteroid inhalers can be used for rapid relief breathlessnes: True c. Spacer devices reduce the risk of getting thrush in the mouth: False d.Steroid inhaler should be taken before your bronchodilator: True e. Inhaled steroids improve lung function in COPD: True Self-Efficacy 6-Item Scale Initial Assessment: We would like to know how confident you are in doing certain activities. Please select your confidence level for: Fatigue Physical Discomfort or Pain Select Number: 3 Emotional Distress Select Number: 3 Other Symptoms or Health Problems Select Number: 3 Different Tasks and Activities Select Number: 7 Medication Select Number: 7 Nutrition Survey Nutrition Survey Instructions Scoring Instructions Nutrition Survey Initial: Have you lost >10 lbs over the past 2 months without trying?: No Are you following a special diet at home for diabetes, low fat, or low salt?: Yes Are you interested in meeting with a dietitian for help understanding your diet?: No Do you eat less than 3 meals a day?: No Do you eat fatty meats (howard, sausage, ribs, etc), fried foods, desserts, large amounts of salad dressings, margarine, butter, or cheese most days?: Yes Do you have food allergies? [Enter types in comment field]: No Do you eat in restaurants more than 3 times a week?: No Do you season food with salt, seasoning salt, or garlic salt?: No
[2023-04-06 14:30] VITALS: BP 98/55
[2023-04-06 14:55] VITALS: BMI 31.7
== END 2023-04-06 23:59 | disposition home or self-care (01) ==
LOC: PR 14:05
DX: Z00.00 Encounter for general adult medical examination without abnormal findings (principal)

== ENCOUNTER 2023-04-20 10:30 | Outpatient (RCR) | payer OTHER, SELFPAY | END 2023-04-20 23:59 | LOC: PR 10:30 | DX: U07.1 COVID-19 (principal) | CPT/HCPCS: 97150; G0239 ==

== ENCOUNTER 2023-05-20 10:30 | Outpatient (RCR) | payer OTHER, SELFPAY | END 2023-05-21 23:59 | LOC: PR 10:30 | DX: Z86.16 Personal history of COVID-19 (principal); R06.02 Shortness of breath | CPT/HCPCS: 97150; G0239 ==

== ENCOUNTER 2023-06-10 10:30 | Outpatient (RCR) | payer OTHER, SELFPAY | END 2023-06-20 23:59 | LOC: PR 10:30 | DX: R06.02 Shortness of breath (principal); Z86.16 Personal history of COVID-19 | CPT/HCPCS: 97150; G0239 ==

== ENCOUNTER 2023-07-15 10:00 | Outpatient (RCR) | payer OTHER, SELFPAY ==
--- NOTE | 2023-07-06 07:39 | PR.OPITP_ITS ---
Exercise - Initial Assessment Visit Session Number:: 31 Physician Prescribed Exercise Modalities: Treadmill, Airdyne and NuStep Resting Blood Pressure: 112/62 Maximum Exercise Blood Pressure: 132/68 Minimum SpO2 with exercise: 95 EKG Type: NSR to sinus tach with no ectopy. Exercise - 30-Day Assessment Visit Session Number:: 31 Physician Prescribed Exercise Resting Blood Pressure: 112/62 Maximum Exercise Blood Pressure: 132/68 Minimum SpO2 with exercise: 95 EKG Type: NSR to sinus tach with no ectopy. Exercise - 60-Day Assessment Visit Session Number:: 31 Physician Prescribed Exercise Resting Blood Pressure: 112/62 Maximum Exercise Blood Pressure: 132/68 Minimum SpO2 with exercise: 95 EKG Type: NSR to sinus tach with no ectopy. Exercise - 90-Day Assessment Visit Session Number:: 31 Physician Prescribed Exercise Resting Blood Pressure: 112/62 Maximum Exercise Blood Pressure: 132/68 Minimum SpO2 with exercise: 95 EKG Type: NSR to sinus tach with no ectopy. Exercise - Final Assessment Visit Date of Eval: 07/06/23 Session Number:: 31 Physician Prescribed Exercise Modalities: Treadmill, Airdyne and NuStep Aerobic Exercise [30-60 min 3-7x/week]:: Met Further followup [see D/C Summary]:: No Zahida-14 METs - Progression 0.5-1.0 weekly:: 5.5 Target Heart Rate:: 109-116 Current RPD:: 2-3 Maximum Excercise HR:: 111 Resting Blood Pressure: 112/62 Maximum Exercise Blood Pressure: 132/68 Minimum SpO2 with exercise: 95 EKG Type: NSR to sinus tach with no ectopy. Current Minutes of Exercise: 52:12 Home Exercise Home Exercise:: Yes Mode: Walking Frequency: daily Time (minutes):: 30 Nutrition/Wt Mgmt - Initial Visit Session Number:: 31 Weight Management Admit Height:: 5 ft 10 in Admit Weight:: 190 lb Admit BMI:: 27.2 Nutrition/Wt Mgmt - 30-Day Visit Date of Eval: 07/06/23 Session Number:: 31 Weight Management Height: 5 ft 10 in Weight:: 190 lb BMI: 27.2 Nutrition/Wt Mgmt - 60-Day Visit Session Number:: 31 Weight Management Height: 5 ft 10 in Weight:: 190 lb BMI: 27.2 Nutrition/Wt Mgmt - 90-Day Visit Session Number:: 31 Weight Management Height: 5 ft 10 in Weight:: 190 lb BMI: 27.2 Nutrition/Wt Mgmt - Final Visit Date of Eval: 07/06/23 Session Number:: 31 Weight Management Height: 5 ft 10 in Weight:: 190 lb BMI: 27.2 Weight Goals Progress:: Goal met Psychosocial - Initial Assess Visit Session Number:: 31 Problems/Goals History of Emotional Disorders: Anxious Psychosocial Goals: 1. Patient is free from overwhelming symtoms of depression (or anxiety, 2. Identifies personal stressors & states the strategies for managing, 3. Identifies activities to decrease isolation and/or symptoms of, 4. Improved psychosocial coping skills., 5. Verbalizes coping strategies. and 7. Improved Q.O.L. Psychosocial Test Tool Used:: PHQ-9 Questionnaire Referred to MD for counseling:: No Referral to Behavioral Health PS - Interventions: Yes: Attend Stress Management Classes and No: Referral to Behavioral Health if PHQ-9 score >9:, No: Referral to [facility] and No: Referral to Physician if PHQ-9 if score is 5-9: Intervention/Plan: See List Interventions/Plan:: Assess stressors,coping strategies & signs of derpression on admission, Instruct/assist pt to develop coping & personal stress Mgt strategies, Instruct patient to recognize signs & symptoms of depression and Instruct patient to recog Psychosocial - 30-Day Visit Date of Eval: 07/06/23 Session Number:: 31 Problems/Goals History of Emotional Disorders: Anxious Psychosocial Goals: 1. Patient is free from overwhelming symtoms of depression (or anxiety, 2. Identifies personal stressors & states the strategies for managing, 3. Identifies activities to decrease isolation and/or symptoms of, 4. Improved psychosocial coping skills., 5. Verbalizes coping strategies. and 7. Improved Q.O.L. Psychosocial Test Tool Used:: PHQ-9 Questionnaire Referred to MD for counseling:: No Referral to Behavioral Health PS - Interventions: Yes: Attend Stress Management Classes and No: Referral to Behavioral Health if PHQ-9 score >9:, No: Referral to [facility] and No: Referral to Physician if PHQ-9 if score is 5-9: Plan Interventions/Plan:: Assess stressors,coping strategies & signs of derpression on admission, Instruct/assist pt to develop coping & personal stress Mgt strategies, Instruct patient to recognize signs & symptoms of depression and Instruct patient to recog Psychosocial - 60-Day Visit Session Number:: 31 Problems/Goals History of Emotional Disorders: Anxious Psychosocial Goals: 1. Patient is free from overwhelming symtoms of depression (or anxiety, 2. Identifies personal stressors & states the strategies for managing, 3. Identifies activities to decrease isolation and/or symptoms of, 4. Improved psychosocial coping skills., 5. Verbalizes coping strategies. and 7. Improved Q.O.L. Psychosocial Test Tool Used:: PHQ-9 Questionnaire Referred to MD for counseling:: No Referral to Behavioral Health PS - Interventions: Yes: Attend Stress Management Classes and No: Referral to Behavioral Health if PHQ-9 score >9:, No: Referral to [facility] and No: Referral to Physician if PHQ-9 if score is 5-9: Plan Interventions/Plan:: Assess stressors,coping strategies & signs of derpression on admission, Instruct/assist pt to develop coping & personal stress Mgt strategies, Instruct patient to recognize signs & symptoms of depression and Instruct patient to recog Psychosocial - 90-Day Visit Session Number:: 31 Problems/Goals History of Emotional Disorders: Anxious Psychosocial Goals: 1. Patient is free from overwhelming symtoms of depression (or anxiety, 2. Identifies personal stressors & states the strategies for managing, 3. Identifies activities to decrease isolation and/or symptoms of, 4. Improved psychosocial coping skills., 5. Verbalizes coping strategies. and 7. Improved Q.O.L. Psychosocial Test Tool Used:: PHQ-9 Questionnaire Referred to MD for counseling:: No Referral to Behavioral Health PS - Interventions: Yes: Attend Stress Management Classes and No: Referral to Behavioral Health if PHQ-9 score >9:, No: Referral to [facility] and No: Referral to Physician if PHQ-9 if score is 5-9: Plan Interventions/Plan:: Assess stressors,coping strategies & signs of derpression on admission, Instruct/assist pt to develop coping & personal stress Mgt strategies, Instruct patient to recognize signs & symptoms of depression and Instruct patient to recog Psychosocial - Final Assess Visit Date of Eval: 07/06/23 Session Number:: 31 Problems/Goals History of Emotional Disorders: Anxious Psychosocial Goals: 1. Patient is free from overwhelming symtoms of depression (or anxiety, 2. Identifies personal stressors & states the strategies for managing, 3. Identifies activities to decrease isolation and/or symptoms of, 4. Improved psychosocial coping skills., 5. Verbalizes coping strategies. and 7. Improved Q.O.L. Psychosocial Test Tool Used:: PHQ-9 Questionnaire Referred to MD for counseling:: No Referral to Behavioral Health PS - Interventions: Yes: Attend Stress Management Classes and No: Referral to Behavioral Health if PHQ-9 score >9:, No: Referral to [facility] and No: Referral to Physician if PHQ-9 if score is 5-9: Plan Interventions/Plan:: Assess stressors,coping strategies & signs of derpression on admission, Instruct/assist pt to develop coping & personal stress Mgt strategies, Instruct patient to recognize signs & symptoms of depression and Instruct patient to recog Oxygen & Oxygen Titration Init Visit Session Number:: 31 Initial Assessment SpO2:: 95 Oxygen & Oxygen Titration 30D Visit Date of Eval: 07/06/23 Session Number:: 31 Reassessment Breath Sounds:: Clear SpO2:: 95 Oxygen & Oxygen Titration 60D Visit Date of Eval: 07/06/23 Session Number:: 31 Reassessment Breath Sounds:: Clear SpO2:: 95 Oxygen & Oxygen Titration 90D Visit Date of Eval: 07/06/23 Session Number:: 31 Reassessment Breath Sounds:: Clear SpO2:: 95 Oxygen & Oxygen Titration NE Visit Date of Eval: 07/06/23 Session Number:: 31 Reassessment Oxygen & Oxygen Titration Final: None Breath Sounds:: Clear SpO2:: 95 Core Components - Initial Visit Session Number:: 31 Hypertension BP: 112/62 [employer] Hypertension Guidelines Blood Pressure: 132/68 Outcomes/Goals: Able to verbalize/achieve optimal blood pressure <130/80 and Incorporates diet changes & exercise for blood pressure control by DC Tobacco - Initial Assessment Tobacco Program Goals Education Schedule Given:: Yes Diabetes Diabetes:: No Core Components - 30 DAYS Visit Date of Eval: 07/06/23 Session Number:: 31 Hypertension Resting Blood Pressure:: 112/62 [employer] Hypertension Guidelines Peak Exercise Blood Pressure:: 132/68 Outcomes/Goals: Able to verbalize/achieve optimal blood pressure <130/80 and Incorporates diet changes & exercise for blood pressure control by DC Tobacco - 30-Day Tobacco Program Goals Education Schedule Given:: Yes Exacerbation Mgmt & Airway Clearance Bronchial Hygiene Plan: Yes: Pt demo correct for device (Instructed in use of SMI & PEP therapy devices), Yes: Pt demo correct for improved hydration, Yes: Pt demo correct for hand hygiene and Yes: Pt demo correct for verbalize when to call MD (verbalizes signs & symptoms of flare-ups) Diabetes Diabetes:: No Core Components - 60 DAYS Visit Session Number:: 31 Hypertension Resting Blood Pressure:: 112/62 [employer] Hypertension Guidelines Peak Exercise Blood Pressure:: 132/68 Outcomes/Goals: Able to verbalize/achieve optimal blood pressure <130/80 and In corporates diet changes & exercise for blood pressure control by VT Tobacco - 60-Day Tobacco Program Goals Education Schedule Given:: Yes Exacerbation Mgmt & Airway Clearance Bronchial Hygiene Plan: Yes: Pt demo correct for device (Instructed in use of SMI & PEP therapy devices), Yes: Pt demo correct for improved hydration, Yes: Pt demo correct for hand hygiene and Yes: Pt demo correct for verbalize when to call MD (verbalizes signs & symptoms of flare-ups) Diabetes Diabetes:: No Core Components - 90 DAYS Visit Session Number:: 31 Hypertension Resting Blood Pressure:: 112/62 [employer] Hypertension Guidelines Peak Exercise Blood Pressure:: 132/68 Outcomes/Goals: Able to verbalize/achieve optimal blood pressure <130/80 and Incorporates diet changes & exercise for blood pressure control by VT Tobacco - 90-Day Tobacco Program Goals Education Schedule Given:: Yes Exacerbation Mgmt & Airway Clearance Bronchial Hygiene Plan: Yes: Pt demo correct for device (Instructed in use of SMI & PEP therapy devices), Yes: Pt demo correct for improved hydration, Yes: Pt demo correct for hand hygiene and Yes: Pt demo correct for verbalize when to call MD (verbalizes signs & symptoms of flare-ups) Diabetes Diabetes:: No Core Components - Final Visit Date of Eval: 07/06/23 Session Number:: 31 Hypertension Resting Blood Pressure:: 112/62 [employer] Hypertension Guidelines Peak Exercise Blood Pressure:: 132/68 Outcomes/Goals: Able to verbalize/achieve optimal blood pressure <130/80 and Incorporates diet changes & exercise for blood pressure control by VT Tobacco - Final Tobacco Program Goals Education Schedule Given:: Yes Education Goal Reached?: Yes Exacerbation Mgmt & Airway Clearance Final Assessment: Demonstrates knowledge of O2 Rx with exercise Bronchial Hygiene Plan: Yes: Pt demo correct for device (Instructed in use of [place] & PEP therapy devices), Yes: Pt demo correct for improved hydration, Yes: Pt demo correct for hand hygiene and Yes: Pt demo correct for verbalize when to call MD (verbalizes signs & symptoms of flare-ups) Medication Medication list reviewed:: Yes Taking medications 100% of the time:: Met Diabetes Diabetes:: No Heart Failure Documenting weight daily: No Patient Health Questionnaire PHQ-9 Screening Discharge Assessment: 1. Little interest or pleasure in doing things: Not at all 2. Feeling down, depressed, or hopeless: Not at all 3. Trouble falling or staying asleep, or sleeping too much: Several days 4. Feeling tired or having little energy: Not at all 5. Poor appetite or overeating: Not at all 6. Feeling bad about yourself -- or that you are a failure or have let yourself or your family down: Not at all 7. Trouble concentrating on things, such as reading the newspaper or watching television: Not at all 8. Moving or speaking so slowly that other people could have noticed. Or the opposite - being so fidgety or restless that you have been moving around a lot more than usual: Not at all How difficult have these problems made it for you to do your work, take care of things at home, or get along with other people?: Not difficult at all Total Score: 1 Knowledge Questionaire (BCKQ) Information Information: [place] COPD Knowledge Questionnaire (BCKQ) This questionnaire is designed to find out what you know about your lung problem. It should be completed without help form anyone else. This usually takes between 10 and 20 minutes. Your answers will help us to find out what information you need to help you to understand and manage your lung condition. [place] which you think is the correct answer. Self-Efficacy 6-Item Scale Discharge Assessment: We would like to know how confident you are in doing certain activities. Please select your confidence level for: Fatigue Select Number: 6 Physical Discomfort or Pain Select Number: 6 Emotional Distress Select Number: 6 Other Symptoms or Health Problems Select Number: 6 Different Tasks and Activities Select Number: 8 Medication Select Number: 8 Total Score:: 6 Nutrition Survey Nutrition Survey Instructions Scoring Instructions Nutrition Survey Discharge: Have you lost >10 lbs over the past 2 months without trying?: No Are you following a special diet at home for diabetes, low fat, or low salt?: No Are you interested in meeting with a dietitian for help understanding your diet?: Yes Do you eat less than 3 meals a day?: No Do you eat fatty meats (howard, sausage, ribs, etc), fried foods, desserts, large amounts of salad dressings, margarine, butter, or cheese most days?: No Do you eat in restaurants more than 3 times a week?: No Do you season food with salt, seasoning salt, or garlic salt?: No Do you used canned, boxed, frozen meals, or soups, seasoning packets?: No
[2023-07-06 07:47] VITALS: BP 112/62; BP 132/68; O2SAT 95; BMI 27.2
== END 2023-07-21 23:59 ==
LOC: PR 10:00
DX: U07.1 COVID-19 (principal)
CPT/HCPCS: 97150; G0239

== ENCOUNTER 2023-07-29 07:26 | Day surgery (SDC) | payer OTHER, SELFPAY ==
[2023-07-06 07:47] VITALS: BMI 27.2
--- NOTE | 2023-07-28 08:45 | COLBX_PTH ---
PATIENT: MARIANO BAIN LOC: EN U#:[id number] AGE/SX: 63/F ROOM: RE07/29/[address]: Dr. Shabnam Cordoba MD : 1960 BED: DIS: 07/29/2023 SPEC #: [id number] RECD: 07/29/23 12:12 STATUS: ABDOULAYE DANIEL #: [id number] AARON: 07/28/23 08:[address]: Shabnam Cordoba DEPT: SURGICAL PATHOLOGY RECD BY: Kristina Santiago ENTERED: 07/29/23 12:53 SP TYPE: COLON BX OTHR DR: [facility] Tissues: COLON BIOPSY Procedures: Surgery Specimen Level IV HEADER OPERATION: Colonoscopy with biopsy PRE-OP DIAGNOSIS: Cancer screening TISSUE SUBMITTED: Near appendiceal orifice MICROSCOPIC DIAGNOSIS Colon, near appendiceal orifice, biopsy: Fragments of colonic mucosa, no pathologic diagnosis. SJ: 07/30/2023 COMMENT Case discussed with Dr. Cordoba on 07/31/2023. MICROSCOPIC DESCRIPTION Slides are reviewed. GROSS DESCRIPTION Received is one container labeled with the patient name and designated appendiceal orifice. The specimen consists of multiple irregular fragments of light goode soft tissue that in aggregate measure 1 x 0.3 x 0.1 cm. The specimen is totally submitted in one cassette. / SJ:cc 07/29/23 TC: 4 [facility]: [id number]
[2023-07-29] VITALS (7 sets, daily range): BP systolic 98–145; BP diastolic 57–84; PULSE 65–89; RESP 16–18; TEMP 36.1–36.4; O2SAT 88–99; BMI 32.1
[2023-07-29] MEDS: Lactated Ringers 1,000 ML 15 ML IV (08:07)
--- NOTE | 2023-07-29 08:57 | PCM.HP.BLA ---
History and Physical Date of Admission: 07/29/23 Date of Service: 07/03/23 MR#: [id number] Acct: [id number] Name: FLORENCE DAVE Rep #: [id number] : 09/23/1952 Provider: Dr. Shabnam Cordoba MD Age/Sex: 70/M Location: [facility] Status: Signed Intake Vital Signs 06/17/2309:54 07/03/2309:59 Height 6 ft 1 in Weight: 269 lb BMI 35.4 BP 160/80 H Blood Pressure Location Lt brachial Position Sitting Respiration 17 Pulse 75 Pulse Source Monitor Temp 968 F H Temp Source Temporal Pulse Oximetry (%) 98 Oxygen Delivery Method room air Intake Visit Reasons: POSITIVE COLOGUARD Chief Complaint: positive cologuard Is patient in pain?: No Allergies No Known Allergies Allergy (Unverified 07/03/23 10:00) Medications atorvastatin 20 mg tablet 20 mg PO DAILY 06/17/23 [History Confirmed 06/17/23] dapagliflozin propanediol 10 mg tablet (Farxiga) 10 mg PO DAILY 06/17/23 [History Confirmed 06/17/23] diltiazem HCl 240 mg capsule,extended release 24 hr 240 mg PO DAILY 06/17/23 [History Confirmed 06/17/23] insulin glargine 100 unit/mL (3 mL) subcutaneous pen (Basaglar KwikPen U-100 Insulin) 15 unit subcut QAM 06/17/23 [History Confirmed 06/17/23] metformin 1,000 mg tablet 1,000 mg PO BID 06/17/23 [History Confirmed 06/17/23] ramipril 5 mg capsule 10 mg PO DAILY 06/17/23 [History Confirmed 06/17/23] rivaroxaban 20 mg tablet (Xarelto) 20 mg PO DAILY 06/17/23 [History Confirmed 06/17/23] semaglutide 1 mg/dose (2 mg/1.5 mL) subcutaneous pen injector (Ozempic) 1 mg subcut QWEEK 06/17/23 [History Confirmed 06/17/23] glucosamine-chondroitin 250 mg-200 mg tablet 2 tab PO DAILY 07/03/23 [History] omega 2-xwl-wsr-fish oil 1,200 mg (144 mg-216 mg) capsule (Fish Oil) cap PO DAILY 07/03/23 [History] PFSH Medical History (Updated 07/03/23 @ 10:[address] Shabnam Cordoba MD) Myocardial infarct Surgical History (Updated 06/17/23 @ 10:26 by Delmer Ho RN) Hx of cervical spine surgery Hx of shoulder surgery Stented coronary artery Family History (Updated 07/03/23 @ 09:59 by Marjan Loza) Father Heart disease HypertensionMother Cancer Social History (Updated 07/03/23 @ 09:59 by Marjan Loza) Smoking Status: Former smoker substance use type: does not use HPI HPI HPI: 70-year-old male presents due to positive Cologuard. Patient had a colonoscopy about 10 years ago per patient which was negative. Patient denies any family history of colon cancer. Patient denies any chronic abdominal pain/nausea/vomiting. Patient states he does get reflux may be 2-3 times a week but it is brief and patient may occasionally take a Tums but is on no other medication for this. Patient has bowel movements daily denies any blood. Patient is currently on Xarelto for A-fib and also had heart stents 2 and 2000, 1 in 2008 and 1 in December 2022. ROS General General: Yes fatigue; No weight change, appetite, colon cancer, breast cancer or weakness HEENT HEENT: No difficulty swallowing, eye injury, eye surgery, swollen glands or hoarseness Endo Endocrine: Yes diabetes mellitus; No thyroid disease, thyroid cancer, Hair loss, heat intolerance or cold intolerance Skin Skin: No rash or changing moles Musc Musculoskeletal: Yes back problems, arthritis and rheumatoid arthritis; No gout or joint pain Cardio Cardiovascular: Yes heart disease, atrial fibrillation, high blood pressure, heart attack and heart stent; No murmur, pacemaker, palpitations, shortness of breat with exertion or chest pain Psych Psychiatric: No depression, anxiety or hearing voices Resp Respiratory: Yes shortness of breath, No sleep apnea, No cough, No COPD, No asthma, No emphysema and No wheezing Gastro Gastrointestinal: No abdominal pain, No nausea or vomiting, No diarrhea, No constipation, No blood in stool, No acid reflux, No hemorrhoids, No ulcers, No gallbladder problem and No black,tarry stools Hugh Hematologic: Yes blood thinners, No blood disorders, No bleeding, No anemia and No blood clots Neuro Neurologic: No system reviewed and no additional complaints, except as documented, No as per HPI, No abnormal gait, No abnormal hearing, No abnormal movements, No abnormal speech, No behavioral changes, No burning sensations, No confusion, No convulsions, No disequilibrium, No dizziness, No localized weakness, No frequent falls, No headache(s), No lack of coordination, No loss of vision, No memory loss, Yes numbness, No other visual disturbances, No radicular pain, No restless legs, No sensory deficit, No syncope, Yes tingling, No tremor(s), No weakness and No other Exam Const General: cooperative, healthy appearing, comfortable and no acute distress [facility] Head: normocephalic and atraumatic Neck Neck: supple Resp Effort & Inspection: normal respiratory effort Cardio Rate: regular rate GI Inspection: non-distended Palpation: soft and nontender Skin General: no rashes or lesions noted Neuro General: CN's II-XI intact bilaterally Extrem General: normal to inspection Psych Mental Status: mental status grossly normal Attitude: cooperative Assessment and Plan Assessment and Plan (1) Positive colorectal cancer screening using Cologuard test: Status: Acute (2) A-fib: Status: Acute (3) Anticoagulant long-term use: Status: Acute Plan Let patient hold his Xarelto x3 days and fish oil x5 days. I have discussed the above with the patient. I have offered the patient colonoscopy for evaluation. I have explained the risks/benefits of the procedure and described the procedure. I have discussed the risks with the patient, including but not limited to: infection, bleeding, perforation of the GI tract requiring emergency surgery, inability to complete the procedure, injury to any internal organs, complications of anesthesia, etc. - the patient understands and agrees to proceed. I have answered all the patient's questions to the patient's satisfaction and the patient has no further questions. The patient has been given instructions for the colon cleansing preparation. 1 day of clears, MiraLAX Dulcolax split prep. Shabnam Cordoba M.D. Pager: [phone] [facility] [address] [place] [address], [facility], [address] [place] [address] Office: [phone] Coding Level of Care Code Off vis,new,level 3 Diagnoses Positive colorectal cancer screening using Cologuard test R19.5 A-fib I48.91 Anticoagulant long-term use Z79.01 07/03/23 1043 <Electronically signed by Shabnam Cordoba MD> Date Shabnam Cordoba MD
--- NOTE | 2023-07-29 09:44 | OP.CCLET_ITS ---
07/29/2023 [facility] Re : Colonoscopy procedure for Liliana [facility] This procedure was performed on Saturday, July 29, 2023. My impressions and recommendations are as follows: Impressions : - One less than 5 mm polyp at the appendiceal orifice, removed with a cold biopsy forceps. Resected and retrieved. - The examination was otherwise normal. Recommendations : - Discharge patient to home. - Resume previous diet. - Continue present medications. - Await pathology results. - Repeat colonoscopy in 5 years for surveillance based on pathology results. My findings are described in the full procedure note, which is enclosed. If I can be of further assistance, please feel free to contact me at Doctor phone number(s): , Work: . Sincerely, MD Shabnam Pate MD 07/29/2023 9:44:35 AM This report has been signed electronically.
--- NOTE | 2023-07-29 09:44 | OP.COLON_ITS ---
Patient Name: Liliana Giang Procedure Date: 07/29/2023 9:08 AM Date of : 1960 Age: 63 Procedure: Colonoscopy Indications: Screening for colorectal malignant neoplasm Providers: Shabnam Cordoba MD Referring MD: Shabnam Cordoba MD Medicines: Monitored Anesthesia Care Patient Profile: This is a 63 year old female. Last Colonoscopy: none. The patient's first colonoscopy is today. Complications: No immediate complications. Procedure: Pre-Anesthesia Assessment: - Prior to the procedure, a History and Physical was performed, and patient medications and allergies were reviewed. The patient's tolerance of previous anesthesia was also reviewed. The risks and benefits of the procedure and the sedation options and risks were discussed with the patient. All questions were answered, and informed consent was obtained. Prior Anticoagulants: The patient has taken no anticoagulant or antiplatelet agents. ASA Grade Assessment: Per anesthesia. After reviewing the risks and benefits, the patient was deemed in satisfactory condition to undergo the procedure. After I obtained informed consent, the scope was passed under direct vision. Throughout the procedure, the patient's blood pressure, pulse, and oxygen saturations were monitored continuously. The Colonoscope was introduced through the anus and advanced to the cecum, identified by the ileocecal valve. The colonoscopy was performed without difficulty. The patient tolerated the procedure well. The quality of the bowel preparation was good. Scope In: 9:17:05 AM Scope Withdrawal Time 0 hours 10 minutes 20 seconds Scope Out: 9:36:10 AM Total Procedure Duration Time 0 hours 19 minutes 5 seconds Findings: The perianal and digital rectal examinations were normal. A less than 5 mm polyp was found in the appendiceal orifice. The polyp was sessile. The polyp was removed with a cold biopsy forceps. Resection and retrieval were complete. The exam was otherwise without abnormality. Impression: - One less than 5 mm polyp at the appendiceal orifice, removed with a cold biopsy forceps. Resected and retrieved. - The examination was otherwise normal. Recommendation: - Discharge patient to home. - Resume previous diet. - Continue present medications. - Await pathology results. - Repeat colonoscopy in 5 years for surveillance based on pathology results. Procedure Code(s): --- Professional --- 67544, PT, Colonoscopy, flexible; with biopsy, single or multiple Diagnosis Code(s): --- Professional --- Z12.11, Encounter for screening for malignant neoplasm of colon D12.1, Benign neoplasm of appendix CPT copyright 2021 [employer]. All rights reserved. The codes documented in this report are preliminary and upon manager patient review may be revised to meet current compliance requirements. MD Shabnam Pate MD 07/29/2023 9:44:35 AM This report has been signed electronically. Number of Addenda: 0 Note Initiated On: 07/29/2023 9:08 AM
--- NOTE | 2023-07-29 10:15 | PCM.HP.BLA ---
History and Physical Date of Admission: 07/29/23 Date of Service: 07/08/23 MR#: [id number] Acct: [id number] Name: MARIANO BAIN Rep #: [id number] : 1960 Provider: Dr. Shabnam Cordoba MD Age/Sex: 63/F Location: [facility] Status: Signed Intake Vital Signs 04/06/2314:55 07/06/2307:47 07/08/2308:36 Height 5 ft 4 in 5 ft 10 in 5 ft 4 in Weight: 194 lb 2 oz BMI 33.3 BP 113/70 Blood Pressure Location Rt brachial Position Sitting Respiration 17 Pulse 65 Pulse Source NIBP Temp 97.4 F L Temp Source Temporal Pulse Oximetry (%) 98 Oxygen Delivery Method room air Intake Visit Reasons: UPPER/LOWER SCOPE Chief Complaint: 10 year colonoscopy Rn Integrated Required: No Is patient in pain?: No Allergies hydrocortisone [From Pheyo] Adverse Reaction (Verified 07/08/23 08:37) Otherketoconazole [From Pheyo] Adverse Reaction (Verified 07/08/23 08:37) Otherred dye Allergy (Mild, Uncoded 07/08/23 08:37) Rash Medications hydroxychloroquine 200 mg tablet (Plaquenil) 200 mg PO BID RA 05/27/21 [History Confirmed 07/08/23] aspirin 81 mg capsule 81 mg PO DAILY 07/08/23 [History Confirmed 07/08/23] bupropion HCl (smoking deter) 150 mg tablet,12 hr sustained-release(smoking deterrent) 300 mg PO DAILY anx/dep 07/08/23 [History Confirmed 07/08/23] carvedilol 3.125 mg tablet (Coreg) 3.125 mg PO BID 07/08/23 [History Confirmed 07/08/23] cholecalciferol (vitamin D3) 125 mcg (5,000 unit) capsule 125 mcg PO DAILY 07/08/23 [History Confirmed 07/08/23] levothyroxine 125 mcg tablet 112 mcg PO DAILY hypothyroid 07/08/23 [History Confirmed 07/08/23] omeprazole 20 mg capsule,delayed release 20 mg PO DAILY PRN 07/08/23 [History Confirmed 07/08/23] sertraline 100 mg tablet (Zoloft) 100 mg PO DAILY 07/08/23 [History Confirmed 07/08/23] Is last menstrual period known: No Post menopausal: Yes Patient : No PFSH Medical History (Updated 07/08/23 @ 09:[address] Shabnam Cordoba MD) Acute respiratory distress syndrome (ARDS) due to severe acute respiratory syndrome coronavirus 2 (SARS-CoV-2) Anxiety and depression Back pain Cervical vertebral fusion Depression Hypothyroid Respiratory failure Sleep apnea Surgical History (Updated 07/08/23 @ 08:36 by Elda Yoo) History of appendectomy History of cholecystectomy History of colonoscopy (~2012) History of laparotomy History of lung biopsy History of partial thyroidectomy Previous section Family History Other Cancer Diabetes Heart disease Social History Smoking Status: Former smoker HPI HPI HPI: 63-year-old female presents for screening colonoscopy. Patient had a previous colonoscopy 10 years ago negative. Patient did use to have reflux as well as upper abdominal issues however after having her gallbladder out in January 2023 she has had no issues patient has not taken any omeprazole or Tums for the last month that she has not had any reflux as well. Patient has bowel movements daily denies any blood. Patient denies any chronic abdominal pain/nausea/vomiting/reflux. Patient denies any family history of colon cancer. [facility] exactly [facility] type. ROS General General: Yes fatigue; No weight change, appetite, colon cancer, breast cancer or weakness HEENT HEENT: No difficulty swallowing, eye injury, eye surgery, swollen glands or hoarseness Endo Endocrine: No thyroid disease, diabetes mellitus, thyroid cancer, Hair loss, heat intolerance or cold intolerance Musc Musculoskeletal: Yes back problems; No arthritis, rheumatoid arthritis, gout or joint pain Cardio Cardiovascular: No murmur, pacemaker, heart disease, atrial fibrillation, high blood pressure, heart attack, heart stent, palpitations, shortness of breat with exertion or chest pain Psych Psychiatric: Yes depression and anxiety; No hearing voices Resp Respiratory: Yes shortness of breath, Yes sleep apnea, No cough, No COPD, No asthma, No emphysema and No wheezing Gastro Gastrointestinal: No abdominal pain, No nausea or vomiting, No diarrhea, No constipation, No blood in stool, No acid reflux, No hemorrhoids, No ulcers, No gallbladder problem and No black,tarry stools Hugh Hematologic: No blood thinners, No blood disorders, No bleeding, No anemia and No blood clots Neuro Neurologic: No weakness Exam Const General: cooperative, healthy appearing, comfortable and no acute distress [facility] Head: normocephalic and atraumatic Neck Neck: supple Resp Effort & Inspection: normal respiratory effort Cardio Rate: regular rate GI Inspection: non-distended Palpation: soft and nontender Skin General: no rashes or lesions noted Neuro General: CN's II-XI intact bilaterally Extrem General: normal to inspection Psych Mental Status: mental status grossly normal Attitude: cooperative Assessment and Plan Assessment and Plan (1) Screening for colon cancer: Status: Acute (2) GERD (gastroesophageal reflux disease): Status: Acute Comment: Only occasional patient currently not on any medication for the last month Plan Patient does not have reflux symptoms requiring upper scope at this time. Patient is currently not taking any Tums or omeprazole for the last month. We will plan to only do the colonoscopy for screening purposes. I have discussed the above with the patient. I have offered the patient colonoscopy for evaluation. I have explained the risks/benefits of the procedure and described the procedure. I have discussed the risks with the patient, including but not limited to: infection, bleeding, perforation of the GI tract requiring emergency surgery, inability to complete the procedure, injury to any internal organs, complications of anesthesia, etc. - the patient understands and agrees to proceed. I have answered all the patient's questions to the patient's satisfaction and the patient has no further questions. The patient has been given instructions for the colon cleansing preparation. Movi prep or GoLytely which ever prep patient was sent from the [facility], 1 day of clears Shabnam Cordoba M.D. Pager: [phone] [facility] [address] [place] [address], [facility], [address] [place] [address] Office: [phone] Coding Level of Care Code Off vis,new,level 3 Diagnoses Screening for colon cancer Z12.11 GERD (gastroesophageal reflux disease) K21.9 07/08/23 0910 <Electronically signed by Shabnam Cordoba MD> Date [facility]
== END 2023-07-29 10:24 | disposition home or self-care (01) ==
LOC: EN 07:32 → AC 07:33
PROVIDERS: Referring Provider Surgery; Visit Provider Surgery
PROC: 0DJD8ZZ Inspection of Lower Intestinal Tract, Via Natural or Artificial Opening Endoscopic (ICD-10-PCS; CPT 45378; principal; 2023-07-29 08:40)
DX: Z12.11 Encounter for screening for malignant neoplasm of colon (principal); D12.1 Benign neoplasm of appendix; K21.9 Gastro-esophageal reflux disease without esophagitis; E03.9 Hypothyroidism, unspecified; F32.A Depression, unspecified; F41.9 Anxiety disorder, unspecified; Z90.49 Acquired absence of other specified parts of digestive tract; Z79.82 Long term (current) use of aspirin; Z79.899 Other long term (current) drug therapy; Z86.16 Personal history of COVID-19; Z87.891 Personal history of nicotine dependence
CPT/HCPCS: 45380; 88305; J7120; J2405